=== PATIENT | male | born 1940 | race Caucasian/White ===

== ENCOUNTER 2017-03-22 07:44 | Day surgery (SDC) | payer OTHER, BC ==
[2017-03-22] MEDS ORDERED: PROPOFOL 200 MG/20 ML VIAL IVP ONE (07:47)
[2017-03-22] MEDS ORDERED: fentaNYL 100 MCG/2 ML INJ IVP ONE ×2 (07:47→08:11)
[2017-03-22] MEDS ORDERED: NS 500 ML IV ONE (07:47)
[2017-03-22] MEDS ORDERED: MIDAZOLAM 2 MG/2 ML VIAL IVP ONE ×2 (07:47→08:11)
[2017-03-22] MEDS ORDERED: BENZOCAINE UNIT DOSE SPRAY HURRICAINE MM ONE (08:11)
--- NOTE | 2017-03-22 08:11 | CPEKG ---
Heart Rate: 87 RR Interval: 690 P-R Interval: 191 QRSD Interval: 90 QT Interval: 388 QTC Interval: 467 P [place]: 106 QRS [place]: -60 T Wave [place]: 53 EKG Severity - ABNORMAL ECG - EKG Impression: ATRIAL FLUTTER VS ATRIAL TACHYCARDIA EKG Impression: LEFT ANTERIOR FASCICULAR BLOCK EKG Impression: BORDERLINE R WAVE PROGRESSION, ANTERIOR LEADS Electronically Signed By: Mayte Beckman 22-Mar-2017 10:47:28
[2017-03-22] MEDS ORDERED: ATROPINE SULFATE 1 MG/10 ML SYR ONE (08:14)
[2017-03-22 08:46] LABS: INR 1.7 (0.83-1.16)
[2017-03-22 08:47] LABS: APTT 36.6 SEC (23.0-38.0)
[2017-03-22 08:48] LABS: ANION GAP 9 mEq/L (8-16); CALCIUM 9.2 mg/dL (8.5-10.4); CARBON DIOXIDE 26 mEq/l (22-31); CHLORIDE 109 mEq/L (97-110); CREATININE 0.8 mg/dL (0.7-1.3); GLOMERULAR FILTRATION RATE > 60; GLUCOSE 103 mg/dL (70-100); MAGNESIUM 2.1 mg/dL (1.6-2.3); POTASSIUM 4.4 mEq/L (3.5-5.2); SODIUM 144 mEq/L (134-144)
[2017-03-22] MEDS ORDERED: LIDOCAINE 2% 5 ML SDV ONE (09:07)
[2017-03-22] MEDS ORDERED: PROPOFOL 200 MG/20 ML VIAL ONE (09:07)
[2017-03-22] MEDS ORDERED: PHENYLEPHRINE 10 MG/ML SDV ONE (10:03)
--- NOTE | 2017-03-22 10:14 | CPEKG ---
Heart Rate: 49 RR Interval: 1224 P-R Interval: 168 QRSD Interval: 92 QT Interval: 488 QTC Interval: 441 P [place]: 11 QRS [place]: -47 T Wave [place]: 51 EKG Severity - ABNORMAL ECG - EKG Impression: SINUS BRADYCARDIA EKG Impression: NONSPECIFIC ANTERIOR AND INFERIOR T ABNL EKG Impression: LAD, CONSIDER LEFT ANTERIOR FASCICULAR BLOCK EKG Impression: COMPARED WITH PRIOR, NSR NOW PRESENT Electronically Signed By: Mayte Beckman 22-Mar-2017 10:46:34
--- NOTE | 2017-03-22 12:08 | CPR ---
[f rep st] NONINVASIVE CARDIAC PROCEDURE REPORT DATE OF PROCEDURE: 03/22/2017 PROCEDURE PERFORMED: Transesophageal echocardiogram guided cardioversion. INDICATION FOR PROCEDURE: Persistent atrial tachycardia. The patient is a pleasant 76-year-old gentleman who has developed a new onset of an atrial tachycard ia that has persisted for several weeks. He was started on Eliquis 5 mg p.o. b.i.d., approximately 2 weeks ago, for concern of possible paroxysmal atrial fibrillation given the irregular nature of hi s rhythm. This rhythm has persisted despite medical management, prompting YASIR guided cardioversion. The patient has informed me he has been compliant with his Eliquis. Risks and benefits of both YASIR and cardioversion were explained in detail to the patient by myself, as well as Anesthesia. He had signed consents for both YASIR and cardioversion. After consents were signed, a bite block was then placed, oxygen was placed, and sedation was achiev ed with propofol. Once appropriate level of sedation was achieved, YASIR probe was passed without inc ident. YASIR probe was used to take images of all cardiac structures. He does have a prolapsed brian l valve, primarily with P2 segment, as well as an A2 segment, with severe, anteriorly directed brian l regurgitation with Coanda effect. Please see complete YASIR report for details. There is no eviden ce of left atrial appendage thrombus. After completion of echocardiogram, YASIR probe was removed. The patient remained appropriately sedated for cardioversion. He underwent cardioversion with a sin gle shock of 150 joules of synchronized biphasic energy with return to sinus rhythm, primarily in th e upper 40s to mid 50s. Postprocedure, he was hypotensive with systolic blood pressure in the 60s. He received a total of 200 mcg of phenylephrine. He woke from the procedure without complications. PLAN: 1. Continue current medications. 2. Expressed to the patient the importance of remaining on anticoagulation with Eliquis 5 mg p.o. b .i.d. 3. Would recommend consultation with Electrophysiology for consideration of atrial tachycardia abla tion. 4. Will also continue to follow his mitral valve prolapse and severe mitral regurgitation. PLAN: Patient is scheduled for followup in our office on March 30, 2017. /[id number]/MODL
--- NOTE | 2017-03-26 10:57 | ECHO ---
[id number] + + [address] : : [facility] [address] : : [phone] + Transesophageal Echocardiographic Report + -------+ :Name: DEVIN ALICIA JStudy Date: 03/22/2017 08:54 AM : : Hospital Admission Number: [id number] Locati on: [facility]: :: 1940 Gender: Male : :Age: 76 yrs Race: WH : :Reason For Study: Atrial Fibrillation : + -------+ Doppler Measurements \T\ Calculations TR max lon: 207.3 cm/sec TR max P.2 mmHg RAP systole: 10.0 mmHg RVSP(TR): 27.2 mmHg Left Ventricle Left ventricular systolic function is normal. Ejection Fraction = 60-65%%. Right Ventricle The right ventricular systolic function is normal. Atria The interatrial septum is intact with no evidence for an atrial septal defect. No thrombus is detected in the left atrial appendage. The left atrium is moderately dilated. Mitral Valve Prolapse of the posterior mitral leaflet(s). Moderate to severe eccentric jet of mitral regurgitation. Tricuspid Valve The tricuspid valve is normal in structure and function. There is moderate tricuspid regurgitation. Right ventricular systolic pressure is normal. Aortic Valve The aortic valve is trileaflet. The aortic valve is normal in structure and function. Mild aortic regurgitation. Pulmonic Valve The pulmonic valve is normal in structure and function. Mild pulmonic valvular regurgitation. Vessels Mild atherosclerotic plaque(s) in the descending aorta. Conclusion A 2D transesophageal echocardiogram with color flow Doppler was performed. No thrombus is detected in the left atrial appendage. Prolapse of the posterior mitral leaflet(s). Moderate to severe eccentric jet of mitral regurgitation. There is moderate tricuspid regurgitation. Right ventricular systolic pressure is normal. Mild aortic regurgitation. Mild pulmonic valvular regurgitation. Mild atherosclerotic plaque(s) in the descending aorta. The left atrium is moderately dilated. The aortic valve is normal in structure and function. Left ventricular systolic function is normal. Ejection Fraction = 60-65%%. Final Reading Physician: Efren Solomon electronically signed on 03/26/2017 10:55 AM Ordering Physician: Efren Solomon Performed By: Efren Solomon
== END 2017-03-22 12:00 | disposition home or self-care (01) ==
LOC: FCATH 07:44
PROVIDERS: ATTEND Internal Medicine Cardiovascular Disease
PROC: B246ZZ4 Ultrasonography of Right and Left Heart, Transesophageal (ICD-10-PCS; principal; 2017-03-22)
PROC: 5A2204Z Restoration of Cardiac Rhythm, Single (ICD-10-PCS; principal; 2017-03-22)
DX: I47.1 Supraventricular tachycardia (principal); Z79.01 Long term (current) use of anticoagulants; I34.0 Nonrheumatic mitral (valve) insufficiency; I34.1 Nonrheumatic mitral (valve) prolapse; Z98.890 Other specified postprocedural states; I25.10 Atherosclerotic heart disease of native coronary artery without angina pectoris; Z95.1 Presence of aortocoronary bypass graft
CPT/HCPCS: J0461; J2370; J2704

== ENCOUNTER 2017-08-09 11:32 | Inpatient (IN) | payer OTHER, BC ==
[2017-08-09] MEDS ORDERED: diphenhydrAMINE 25 MG CAP PO ONE (11:38)
[2017-08-09] MEDS ORDERED: DIAZEPAM 5 MG TAB PO ONE (11:38)
[2017-08-09] MEDS ORDERED: FAMOTIDINE 20 MG TAB PO ONE (11:38)
[2017-08-09] MEDS ORDERED: NS 1,000 ML IV ONE (11:38)
[2017-08-09] MEDS ORDERED: ASPIRIN EC 325 MG TAB PO ONE (11:38)
--- NOTE | 2017-08-09 11:59 | CPEKG ---
Heart Rate: 86 RR Interval: 698 QRSD Interval: 88 QT Interval: 392 QTC Interval: 469 QRS [place]ound: -51 T Wave [place]: 83 EKG Severity - ABNORMAL ECG - EKG Impression: ATRIAL FLUTTER, A-RATE 230 EKG Impression: LEFT ANTERIOR FASCICULAR BLOCK EKG Impression: BORDERLINE R WAVE PROGRESSION, ANTERIOR LEADS EKG Impression: MINIMAL ST DEPRESSION, LATERAL LEADS EKG Impression: ATRIAL FLUTTER HAS REPLACED NORMAL SINUS RHYTHM ON PRIOR Electronically Signed By: Jose Juares 13-Aug-2017 08:42:58
[2017-08-09 12:14] LABS: % IMMATURE GRANULYOCYTES 0.2 % (0.0-1.1); ABSOLUTE IMMATURE GRANULOCYTES 0.01 10^3/uL (0.00-0.10); ADD DIFF? NO; ADD MORPH? NO; ADD SCAN? NO; ATYPICAL LYMPHOCYTE FLAG 10 (0-99); FRAGMENT RBC FLAG 0 (0-99); HEMATOCRIT 40.6 % (40.0-51.0); HEMOGLOBIN 14.2 g/dL (13.7-17.5); LEFT SHIFT FLG 0 (0-99); LIPEMIA HEMOLYSIS FLAG 90 (0-99); MEAN CELL HEMOGLOBIN 34.7 pg (27.9-34.1); MEAN CELL VOLUME 99.3 fL (81.5-99.8); MEAN PLATELET VOLUME 10.1 fL (8.7-11.7); PLATELET CLUMPS FLAG 0 (0-99); PLATELET COUNT 150 10^3/uL (150-400); RED BLOOD CELL COUNT 4.09 10^6/uL (4.40-6.38); RED CELL DISTRIBUTION WIDTH 12.7 % (11.5-15.2)
[2017-08-09] MEDS ORDERED: fentaNYL 100 MCG/2 ML INJ ONE (12:35)
[2017-08-09] MEDS ORDERED: MIDAZOLAM 2 MG/2 ML VIAL ONE (12:35)
[2017-08-09] MEDS ORDERED: IOPAMIDOL (ISOVUE-370) 150 ML BTL IV ONE (12:35)
[2017-08-09] MEDS ORDERED: LIDOCAINE 1% 300 MG/30 ML SDV ONE (12:35)
[2017-08-09 12:38] LABS: ANION GAP 11 mEq/L (8-16); CALCIUM 9.9 mg/dL (8.5-10.4); CARBON DIOXIDE 23 mEq/l (22-31); CHLORIDE 106 mEq/L (97-110); CHOLESTEROL 143 mg/dL (140-220); CHOLESTEROL/HDL RATIO 3.33 RATIO (1.00-4.97); CREATININE 0.8 mg/dL (0.7-1.3); GLOMERULAR FILTRATION RATE > 60; GLUCOSE 100 mg/dL (70-100); HIGH DENSITY LIPOPROTEIN 43 mg/dL (40-65); LDL/HDL RATIO 1.95 RATIO (1.00-3.64); LOW DENSITY LIPOPROTEIN 84 mg/dL (80-100); MAGNESIUM 1.9 mg/dL (1.6-2.3); NON-HIGH DENSITY LIPOPROTEIN 100 mg/dL (90-129); POTASSIUM 4.5 mEq/L (3.5-5.2); SODIUM 140 mEq/L (134-144); TRIGLYCERIDE 82 mg/dL (40-150); VERY LOW DENSITY LIPOPROTEINS 16 mg/dL (8-25)
--- NOTE | 2017-08-09 13:24 | PDPROPOC ---
Sedation Plan of Care Sedation Plan of Care: vital signs stable, mental status noted, patient educated of risks, benefits, alternatives, patient can tolerate sedation ASA Classification: ASA 2 Planned drugs: fentanyl, midazolam Mallampati Score: Class 2 Mallampati Reference Image: Patient passed 3-3-2 rule?: Yes
--- NOTE | 2017-08-09 13:27 | PDGENHP ---
History & Physical Chief Complaint: BORRERO, ankle edema. Severe MR History of Present Illness: 76 year old with moderate to severe symptomatic MR admitted for Left and Right heart cath prior to MV repair tomorrow with Dr Teixeira. Pertinent Past, Social, Family History: PMH: MR, PAF, CAD, DM, Relevant Physical Exam: Awake, Alert, appropriate. Rate controlled afib Cardiorespiratory Assessment: Rate controlled afib. CTAB
[2017-08-09 13:29] LABS: INR 1.24 (0.83-1.16); PROTIME(PATIENT) 15.6 SEC (12.0-15.0)
[2017-08-09] MEDS ORDERED: MUPIROCIN 2% 22 GM OINT NS ONE (14:25)
[2017-08-09] MEDS ORDERED: NITROGLYCERIN 0.4 MG BTL SL PRN (15:16)
[2017-08-09] MEDS ORDERED: ONDANSETRON 4 MG/2 ML VIAL IVP PRN (15:16)
[2017-08-09] MEDS ORDERED: ATROPINE SULFATE 1 MG/10 ML SYR IVP PRN (15:16)
--- NOTE | 2017-08-09 16:18 | CPIP ---
[f rep st] INVASIVE CARDIAC PROCEDURE DATE OF PROCEDURE: 08/09/2017 NAME OF PROCEDURE: Diagnostic left heart catheterization and right heart catheterization. INDICATION FOR PROCEDURE: Preoperative left and right heart catheterization in anticipation of mitral valve repair, aortic valve replacement and tricuspid ring , and Bill-Maze IV procedure in the setting of symptomatic severe mitral insufficiency. PROCEDURE: After informed consent was obtained, patient was brought to the cardiac catheterization lab where he was prepped and draped in a sterile fashion. Using 1% lidocaine, the right groin was anesthetized. Using modified Seldinger technique, a 6-Ukrainian catheter was placed into the right common femoral artery without complications. Local anesthesia was then delivered to the right common femoral vein site. A 7-Ukrainian catheter was placed into the right common femoral vein via modified Seldinger technique without complications. Right heart catheterization was performed, measuring right atrial pressure, right ventricular pressure, pulmonary artery pressure, and pulmonary capillary wedge pressure. Outputs were taken. O2 saturations were obtained at the pulmonary artery, right ventricle, right atrium, and inferior vena cava. Balloon was deflated, and right heart catheter was removed without complications. A JL-4 catheter was used to take images of the left coronary anatomy in multiple projections. The JL-4 catheter was exchanged over a guidewire for a JR -4 catheter. JR-4 catheter was used to take images of the right coronary artery in multiple projections. The JR-4 catheter was exchanged over a guidewire for angled pigtail catheter. Angled pigtail catheter was used to cross the aortic valve. LVEDP was assessed. Left ventriculogram was performed. Aortic valve gradient was assessed. Angled pigtail catheter was removed over a guidewire without complications. Imaging of the right common femoral artery site demonstrated appropriate placement of the 6-Ukrainian sheath with no evidence of trauma to the right common femoral artery and was deemed appropriate for closure. FINDINGS: 1. Left main: Normal size and caliber, bifurcates into left anterior descending and left circumflex coronary arteries. There is no evidence of coronary disease within the left main. 2. Left anterior descending: A large vessel that wraps around the apex of the left ventricle. There is a small first and moderate-sized second diagonal branches. There are multiple septal perforators. There is no evidence of coronary disease within the left anterior descending. 3. Circumflex artery: Gives rise to a small first and moderate 2nd obtuse marginal branches. There are some mild luminal irregularities in the proximal portion of the smaller 1st obtuse marginal branch. The remainder of the circumflex artery is free of coronary disease. 4. The right coronary artery is a nondominant vessel. No evidence of coronary disease within the right coronary artery. 5. Hemodynamics: Left ventriculogram demonstrates LVEF of 60%. LVEDP 16 mmHg. Aortic valve gradient, none. RIGHT HEART CATHETERIZATION: Hemodynamics: 1. Right atrial pressure mean of 10 mmHg. 2. Right ventricular pressure 27/5. 3. Pulmonary artery pressure 25/17 with a mean of 20. 4. Pulmonary capillary wedge pressure 14 mmHg. Saturations: 1. Femoral artery saturation 93.3%. 2. Pulmonary artery pressure 68.9%. 3. RV saturation 70.1%. 4. Right atrial saturation 71.9. 5. IVC 77.5%. 6. Aortic pressure 81/64. Hemodynamics: 1. Cardiac output 7.28 L/min. 2. Cardiac index 3.87 at a heart rate of 71 beats per minute. 3. Pulmonary vascular resistance 1.52 Wood units. 4. SVR 6.74 Wood units. CONCLUSION: 1. Essentially normal coronary arteries with mild nonobstructive coronary disease in proximal portion of the first obtuse marginal branch. The remainder of the coronaries were free of coronary artery disease. 2. Left ventricular ejection fraction 60% with evidence of severe mitral regurgitation, 4+. 3. Normal right heart hemodynamics, output, and cardiac index. PLAN: Mitral valve repair and Bill-Maze IV procedure with possible tricuspid ring and aortic valve replacement. /[id number]/MODL MTDD
[2017-08-09 20:50] LABS: HEMOGLOBIN A1C 5.9 % (4.0-6.0)
[2017-08-09] MEDS ORDERED: CHLORHEXIDINE GLUC HIBICLENS 118 ML BTL TP SCH (21:00)
[2017-08-09] MEDS: METOPROLOL TARTRATE 25 MG TAB PO SCH (21:12)
[2017-08-09] MEDS: MUPIROCIN 2% 22 GM OINT NS SCH (22:45)
[2017-08-10] MEDS ORDERED: PHENYLEPHRINE HCL 50 MG in NS 250 ML IV ONE (06:00)
[2017-08-10] MEDS ORDERED: SODIUM BICARBONATE 20 MEQ, LIDOCAINE 1% 10 ML in NORMOSOL-R 1,000 ML MISC ONE (06:00)
[2017-08-10] MEDS ORDERED: ceFAZolin 2 GM/DEXTROSE 100 ML IV ONE (06:00)
[2017-08-10] MEDS ORDERED: MANNITOL 20% 50 GM/250 ML BAG IV ONE (06:00)
[2017-08-10] MEDS ORDERED: AMINOCAPROIC ACID 5 GM/20 ML VIAL IV ONE (06:00)
[2017-08-10] MEDS ORDERED: CITRATE DEXTROSE SOLN 500 ML BAG MISC ONE (06:00)
[2017-08-10] MEDS ORDERED: NOREPINEPHRINE BITARTRATE 16 MG in NS 250 ML IV ONE (06:00)
[2017-08-10] MEDS ORDERED: niCARdipine/NACL 200 ML IV SCH (06:00)
[2017-08-10] MEDS ORDERED: INSULIN REGULAR HUMAN 100 UNIT in NS 100 ML IV ONE (06:00)
[2017-08-10] MEDS ORDERED: ALBUMIN 5% 250 ML BOTTLE IV ONE (06:13)
[2017-08-10] MEDS ORDERED: PROTAMINE SULFATE 50 MG/5 ML VIAL IVP ONE (06:13)
[2017-08-10] MEDS ORDERED: POTASSIUM Cl (KCl) 20 MEQ/50 ML BAG IV ONE (06:14)
[2017-08-10] MEDS ORDERED: CITRATE DEXTROSE SOLN 500 ML BAG ONE (06:14)
[2017-08-10] MEDS ORDERED: NA BICARBONATE 50 MEQ/50 ML VIAL ONE (06:14)
[2017-08-10] MEDS ORDERED: niCARdipine/NACL/200 ML BAG IV ONE (06:14)
[2017-08-10] MEDS ORDERED: CALCIUM CHLORIDE 1 GM/10 ML INJ ONE (06:14)
[2017-08-10] MEDS ORDERED: LIDOCAINE 2% 100 MG/5 ML SYR ONE (06:14)
[2017-08-10] MEDS ORDERED: MILRINONE/DEXTROSE/100 ML BAG IV ONE (06:14)
[2017-08-10] MEDS ORDERED: AMINOCAPROIC ACID 5 GM/20 ML VIAL ONE (06:14)
[2017-08-10] MEDS ORDERED: AMIODARONE HCL 150 MG/3 ML VIAL ONE (06:14)
[2017-08-10] MEDS ORDERED: DOPamine/DEXTROSE/250 ML BAG IV ONE (06:14)
[2017-08-10] MEDS ORDERED: MAGNESIUM SULFATE 1 GM/2 ML VIAL ONE (06:15)
[2017-08-10] MEDS ORDERED: ceFAZolin 1 GM VIAL ONE (06:15)
[2017-08-10] MEDS ORDERED: methylPREDNISolone SOD SUCC 1 GM/8 ML VIAL ONE (06:15)
[2017-08-10] MEDS ORDERED: HEPARIN 10,000 UNIT/10 ML MDV ONE (06:15)
[2017-08-10] MEDS ORDERED: ADENOSINE 6 MG/2 ML VIAL ONE (06:15)
[2017-08-10] MEDS ORDERED: MIDAZOLAM 2 MG/2 ML VIAL ONE (06:53)
--- NOTE | 2017-08-10 06:57 | PDANEPAE ---
ANE History of Present Illness 76 yo for mvr nl lv PAF s/p ascending aorta repair ANE Past Medical History - Pulmonary History Hx Oxygen in Use at Home: No Hx Sleep Apnea: No Sleep Apnea Screening Result - Last Documented: Positive - Endocrine History Hx Diabetes: No - Chronic Pain History Chronic Pain: Yes (neck) ANE Review of Systems Review of Systems: ANE Patient History - Allergies Allergies/Adverse Reactions: erythromycin base [Erythromycin Base] Allergy (Verified 08/02/17 09:56) Swelling/neck,face,throat latex Allergy (Verified 08/02/17 09:56) Rash - Home Medications Home medications: home medication list seen and reviewed Home Medications: Lisinopril [Zestril 5 mg (*)] 5 mg PO DAILY 01/05/11 [Last Taken 03/22/17 07:00] Apixaban [Eliquis] 5 mg PO BID 03/22/17 [Last Taken 03/22/17 07:00] Metoprolol Tartrate [Lopressor 25 mg (*)] 25 mg PO BID 03/22/17 [Last Taken 07:00] Aspirin [Aspirin 81mg (*)] 81 mg PO DAILY 08/02/17 [Last Taken Unknown] Atorvastatin Calcium [Lipitor 40 mg (*)] 40 mg PO DAILY 08/02/17 [Last Taken Unknown] Cholecalciferol Vit D3 [Vitamin D3 (*)] 1,000 units PO DAILY 08/02/17 [Last Taken Unknown] Herbals/Supplements -Info Only 1 ea PO DAILY 08/02/17 [Last Taken Unknown] diphenhydrAMINE [Benadryl 50 MG (*)] 50 mg PO BID PRN 08/02/17 [Last Taken Unknown] - NPO status NPO Status: no food or drink >8 hours NPO Since - Liquids (Date): 08/10/17 NPO Since - Liquids (Time): 00:00 NPO Since - Solids (Date): 08/10/17 NPO Since - Solids (Time): 00:00 - Smoking Hx Smoking Status: Never smoked ANE Labs/Vital Signs - Labs Result Diagrams: 08/09/17 12:01 08/09/17 12:01 - Vital Signs Blood Pressure: 96/63 Heart Rate: 86 Respiratory Rate: 13 O2 Sat (%): 94 Height: 5 ft 10 in Weight: 68.4 kg ANE Physical Exam - Airway Mallampati Score: Class 2 Mouth exam: normal dental/mouth exam - Pulmonary Pulmonary: no respiratory distress - Cardiovascular Cardiovascular: regular rate and rhythym - ASA Status ASA Status: IV ANE Anesthesia Plan Anesthesia Plan: general endotracheal anesthesia Lines/Monitors: arterial line, central line, YASIR
[2017-08-10] MEDS ORDERED: MIDAZOLAM 2 MG/2 ML VIAL IVP ONE ×2 (06:59→07:00)
--- NOTE | 2017-08-10 07:02 | PDGENHP ---
History and Physical - Chief Complaint atrial fib/flutter and leaky valves - History of Present Illness 76 yo male with a hx of remote asc aneurysm repair and recent increase in frequency of palpitations with worsening exertional dyspnea and declining stamina, found to be in atrial fibrillation and to have severe MR, moderate AI, and moderate TR. No overt CHF, CP or presyncope. Evaluated for valvular replacement with AF ablation and admitted in advance of scheduled surgery to complete risk stratification. Preop imaging negative for obstructive CAD, LVSD, elevated filling pressures or prohibitive neurologic risk. History Information - Allergies/Home Medication List Allergies/Adverse Reactions: erythromycin base [Erythromycin Base] Allergy (Verified 08/02/17 09:56) Swelling/neck,face,throat latex Allergy (Verified 08/02/17 09:56) Rash Home Medications: Lisinopril [Zestril 5 mg (*)] 5 mg PO DAILY 01/05/11 [Last Taken 03/22/17 07:00] Apixaban [Eliquis] 5 mg PO BID 03/22/17 [Last Taken 03/22/17 07:00] Metoprolol Tartrate [Lopressor 25 mg (*)] 25 mg PO BID 03/22/17 [Last Taken 07:00] Aspirin [Aspirin 81mg (*)] 81 mg PO DAILY 08/02/17 [Last Taken Unknown] Atorvastatin Calcium [Lipitor 40 mg (*)] 40 mg PO DAILY 08/02/17 [Last Taken Unknown] Cholecalciferol Vit D3 [Vitamin D3 (*)] 1,000 units PO DAILY 08/02/17 [Last Taken Unknown] Herbals/Supplements -Info Only 1 ea PO DAILY 08/02/17 [Last Taken Unknown] diphenhydrAMINE [Benadryl 50 MG (*)] 50 mg PO BID PRN 08/02/17 [Last Taken Unknown] I have personally reviewed and updated: family history, medical history, social history, surgical history - Past Medical History atrial fibrillation (onset in Jun 2017), coronary artery disease (stable), cancer (skin), diabetes type 2 (diet controlled), hypertension, hyperlipidemia Additional medical history: mitral valve prolapse. enlarged aortic root with mild AI. long standing persistent atrial flutter. chronic anticoagulation with Eliquis (stopped 08/03/17). varicose veins with mild chronic ankle edema. pectus excavatum - Surgical History Reports: vascular surgery (Ascending aortic replacement 2008) Additional surgical history: hernia repair 1998. Moh's surgery nose - Family History Positive for: connective tissue disorder (Marfan's syndrome) - Social History Smoking Status: Never smoked Review of Systems Review of Systems: Constitutional: Reports: no symptoms EENMT: Reports: other (glasses) Cardiac: Reports: irregular heart rate, other (no inc in edema) Respiratory: Reports: other (no PND, orthopnea, or SOB at rest) Gastrointestinal: Reports: no symptoms Genitourinary: Reports: no symptoms Muscolosketal: Reports: no symptoms Skin: Reports: no symptoms Neurological: Reports: no symptoms Hematologic/Lymphatic: Reports: no symptoms Physical Exam Physical Exam: Temp Pulse Resp BP Pulse Ox 36.6 C 86 13 96/63 L 94 08/10/17 04:37 08/10/17 04:37 08/10/17 04:37 08/10/17 04:37 08/10/17 04:37 Constitutional: no apparent distress, appears nourished Eyes: anicteric sclera, other (PER) Ears, Nose, Mouth, Throat: moist mucous membranes, hearing normal, other (good dentition) Cardiovascular: regular rate and rhythym, systolic murmur, other (no visible edema, scattered superficial varicosities bilat low legs) Peripheral Pulses: 2+: femoral (R) (cath site ok), femoral (L), dorsalis-pedis ( R), dorsalis-pedis (L) Respiratory: clear to auscultation, other (well healed median sternotomy scar) Gastrointestinal: normoactive bowel sounds, soft, non-tender abdomen Skin: warm, no rashes or abrasions Musculoskeletal: other (symmetric tone) Psychiatric: interacting appropriately, not anxious Lab Data & Imaging Review 08/09/17 12:01 08/09/17 12:01 WBC 5.40 10^3/uL (3.80-9.50) 08/09/17 12:01 RBC 4.09 10^6/uL (4.40-6.38) L 08/09/17 12:01 Hgb 14.2 g/dL (13.7-17.5) 08/09/17 12:01 Hct 40.6 % (40.0-51.0) 08/09/17 12:01 MCV 99.3 fL (81.5-99.8) 08/09/17 12:01 MCH 34.7 pg (27.9-34.1) H 08/09/17 12:01 MCHC 35.0 g/dL (32.4-36.7) 08/09/17 12:01 RDW 12.7 % (11.5-15.2) 08/09/17 12:01 Plt Count 150 10^3/uL (150-400) 08/09/17 12:01 MPV 10.1 fL (8.7-11.7) 08/09/17 12:01 Neut % (Auto) 61.1 % (39.3-74.2) 08/09/17 12:01 Lymph % (Auto) 24.3 % (15.0-45.0) 08/09/17 12:01 [place] % (Auto) 8.9 % (4.5-13.0) 08/09/17 12:01 Eos % (Auto) 4.4 % (0.6-7.6) 08/09/17 12:01 Baso % (Auto) 1.1 % (0.3-1.7) 08/09/17 12:01 Nucleat RBC Rel Count 0.0 % (0.0-0.2) 08/09/17 12:01 Absolute Neuts (auto) 3.30 10^3/uL (1.70-6.50) 08/09/17 12:01 Absolute Lymphs (auto) 1.31 10^3/uL (1.00-3.00) 08/09/17 12:01 Absolute Monos (auto) 0.48 10^3/uL (0.30-0.80) 08/09/17 12:01 Absolute Eos (auto) 0.24 10^3/uL (0.03-0.40) 08/09/17 12:01 Absolute Basos (auto) 0.06 10^3/uL (0.02-0.10) 08/09/17 12:01 Absolute Nucleated RBC 0.00 10^3/uL (0-0.01) 08/09/17 12:01 Immature Gran % 0.2 % (0.0-1.1) 08/09/17 12:01 Immature Gran # 0.01 10^3/uL (0.00-0.10) 08/09/17 12:01 PT 15.6 SEC (12.0-15.0) H 08/09/17 12:01 INR 1.24 (0.83-1.16) H 08/09/17 12:01 Sodium 140 mEq/L (134-144) 08/09/17 12:01 Potassium 4.5 mEq/L (3.5-5.2) 08/09/17 12:01 Chloride 106 mEq/L (97-110) 08/09/17 12:01 Carbon Dioxide 23 mEq/l (22-31) 08/09/17 12:01 Anion Gap 11 mEq/L (8-16) 08/09/17 12:01 BUN 18 mg/dL (7-23) 08/09/17 12:01 Creatinine 0.8 mg/dL (0.7-1.3) 08/09/17 12:01 Estimated GFR > 60 08/09/17 12:01 Glucose 100 mg/dL (70-100) 08/09/17 12:01 Hemoglobin A1c 5.9 % (4.0-6.0) 08/09/17 17:30 Estim Average Glucose 123 mg/dL (68-126) 08/09/17 17:30 Calcium 9.9 mg/dL (8.5-10.4) 08/09/17 12:01 Magnesium 1.9 mg/dL (1.6-2.3) 08/09/17 12:01 Triglycerides 82 mg/dL (40-150) 08/09/17 12:01 Cholesterol 143 mg/dL (140-220) 08/09/17 12:01 Cholesterol Risk Factr 0.5 (0.2-1.0) 08/09/17 12:01 LDL Cholesterol, Calc 84 mg/dL (80-100) 08/09/17 12:01 LDL Risk Factor 0.8 (0.2-1.0) 08/09/17 12:01 VLDL Cholesterol 16 mg/dL (8-25) 08/09/17 12:01 Non-HDL Cholesterol 100 mg/dL (90-129) 08/09/17 12:01 HDL Cholesterol 43 mg/dL (40-65) 08/09/17 12:01 LDL/HDL Ratio 1.95 RATIO (1.00-3.64) 08/09/17 12:01 Cholesterol/HDL Ratio 3.33 RATIO (1.00-4.97) 08/09/17 12:01 Patient ABO/Rh A POSITIVE 08/09/17 17:30 Antibody Screen NEGATIVE 08/09/17 17:30 Crossmatch IS Only See Detail 08/09/17 17: Visualized and Interpreted Chest x-ray results: Yes Chest X-Ray results: no infiltrate, other (cardiomegaly, pectus excavatum) Visualized and Interpreted EKG results: Yes EKG Interpretation: Positive for: other (atrial flutter) Assessment & Plan Assessment: Sx severe mitral regurgitation Secondary tricuspid regurgitation Moderate aortic valve insufficiency Longstanding persistent AFlutter with more recent AF Nonobstructive CAD with preserved LV systolic fx Pectus excavatum Remote median sternotomy for ascending aortic replacement Plan: Redo median sternotomy. Possible peripheral CPB pending RV adhesion to post sternum. Multi valve replace/repair CoxMaze4 procedure Consents per Dr Teixeira
[2017-08-10] MEDS ORDERED: fentaNYL 100 MCG/2 ML INJ ONE ×2 (07:06)
[2017-08-10] MEDS ORDERED: REMIFENTANIL HCL 1 MG VIAL ONE (07:06)
[2017-08-10] MEDS ORDERED: PROPOFOL/EMULSION 500 MG/50 ML BOTTLE IV ONE ×2 (07:06→10:04)
[2017-08-10] MEDS ORDERED: ROCURONIUM 100 MG/10 ML VIAL ONE (08:00)
[2017-08-10] MEDS ORDERED: DEXMEDETOMIDINE HCL 400 MCG in NS 100 ML IV SCH (08:00)
[2017-08-10] MEDS: METOPROLOL TARTRATE 25 MG TAB PO SCH (08:44)
[2017-08-10] MEDS: MUPIROCIN 2% 22 GM OINT NS SCH ×2 (08:45→21:05)
[2017-08-10] MEDS ORDERED: MINERAL OIL 10 ML VIAL ONE (11:21)
--- NOTE | 2017-08-10 11:44 | POSTOPPROG ---
Post Op Note Date of Operation: 08/10/17 Surgeon: Pepe Teixeira Grocery Clerk Marking: Bernardino Anesthesiologist: Tian Anesthesia: GET(General Endotracheal) Pre-op Diagnosis: CHF, MR,TR,AI LPAF Procedure: reop MV repair #34 ring/P2 resection, TVA #32 ring, CMIV w testing Inf/Abcess present in the surg proc area at time of surgery?: No EBL: 100-500
[2017-08-10] MEDS ORDERED: SODIUM CL NASAL 45 ML BTL EACHNARE PRN (11:53)
[2017-08-10] MEDS ORDERED: D50W 25 GM/50 ML SYR IVP PRN (11:53)
[2017-08-10] MEDS ORDERED: MEPERIDINE 25 MG/ML SYR IVP PRN (11:53)
[2017-08-10] MEDS ORDERED: POLYETHYLENE GLYCOL 3350 17 GM PKT PO PRN (11:53)
[2017-08-10] MEDS ORDERED: MAGNESIUM SULF 2 GM/WATER 50 ML IV ONE (11:53)
[2017-08-10] MEDS ORDERED: MAGNESIUM HYDROXIDE 30 ML UDCUP PO PRN (11:53)
[2017-08-10] MEDS ORDERED: ACETAMINOPHEN 650 MG SUPP PR PRN (11:53)
[2017-08-10] MEDS ORDERED: LACTULOSE 20 GM/30 ML UDCUP PO PRN (11:53)
[2017-08-10] MEDS ORDERED: CEPACOL LOZENGE PO PRN (11:53)
[2017-08-10] MEDS ORDERED: fentaNYL 100 MCG/2 ML INJ IVP PRN (11:53)
[2017-08-10] MEDS ORDERED: ONDANSETRON DISINTEGRATING 4 MG TAB PO PRN (11:53)
[2017-08-10] MEDS ORDERED: BISACODYL 10 MG SUPP PR PRN (11:53)
[2017-08-10] MEDS ORDERED: POTASSIUM Cl (KCl) 50 ML IV PRN (11:53)
[2017-08-10] MEDS ORDERED: PANTOPRAZOLE SODIUM 40 MG in NS 100 ML IV ONE (11:53)
[2017-08-10] MEDS ORDERED: ACETAMINOPHEN 325 MG TAB PO PRN (11:53)
[2017-08-10] MEDS ORDERED: INSULIN REGULAR HUMAN 100 UNIT in NS 100 ML IV SCH (12:00)
[2017-08-10] MEDS ORDERED: NS 1,000 ML IV SCH (12:00)
[2017-08-10] MEDS: ALBUMIN 5% 250 ML IV PRN ×2 (12:38→12:50)
--- NOTE | 2017-08-10 12:42 | GOP ---
[f rep st] OPERATIVE REPORT DATE OF OPERATION: 08/10/2017 SURGEON: Pepe Teixeira DO [employer] ARCHITECT: Bernardino ANESTHESIOLOGIST: Oz Crook MD. PREOPERATIVE DIAGNOSIS: 1. Congestive heart failure. 2. Longstanding persistent atrial fibrillation. 3. Moderate aortic insufficiency. 4. Vmojhacl-gf-xpoeee tricuspid insufficiency. 5. Severe mitral insufficiency. POSTOPERATIVE DIAGNOSIS: 1. Congestive heart failure. 2. Longstanding persistent atrial fibrillation. 3. Moderate aortic insufficiency. 4. Vofynupf-ck-ayxtkq tricuspid insufficiency. 5. Severe mitral insufficiency. PROCEDURE PERFORMED: 1. Reoperation mitral valve repair with a P2 resection and a #34 Physio annuloplasty ring. 2. Tricuspid valve annuloplasty with a #32 Carrillo ring annuloplasty. 3. Left and right-sided Bill-Maze IV, utilizing both radiofrequency and cryoablation with internal cl osure of the left atrial appendage with testing. FINDINGS: Patient presented with longstanding persistent atrial fibrillation, severe mitral insuffic iency, rfziwzfw-kn-wmkbjs tricuspid insufficiency, and moderate aortic insufficiency. DESCRIPTION OF PROCEDURE: He was consented, brought to the operating room, intubated, and monitoring lines were placed. He was prepped and draped in sterile classical manner. Repeat sternotomy was pe rformed. Left common femoral artery was exposed prior to sternotomy due to the right atrium being ad herent to the posterior sternal table. The sternum was opened, and the right side of the heart was m arsupialized, as was the previous ascending aorta graft that had been placed prior. He was hepariniz ed and cannulated in the ascending aorta above the graft and in both cava with caval tapes. Retrogra de and antegrade catheters were placed. We then initiated cardiopulmonary bypass. He had minimal re gurgitation with the heart empty, suggesting that his aortic insufficiency was not clinically signifi cant. Because of the scar tissue, I was unable to encircle the pulmonary veins with heart beating. I therefore arrested the heart with antegrade cardioplegia, retrograde cardioplegia, topical hypother felicia, and systemic cooling. I then opened the left atrium through the right superior pulmonary vein a raine did a 3/4 circumference transection of the right vein, completing it with cryo for 2 minutes. I dian younger did the roof lesion and the left pulmonary vein lesion with cryo, as well, and the floor lesion w ith cryo as well as the isthmus lesion. I then did the coronary sinus lesion, avoiding the terminus of the right and left coronary systems, overlapping it with the isthmus lesion. I then inspected the valve. 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 A triangular resection of the P2 segment w ith primary closure with [place]-Ricky revealed complete resolution of the regurgitation. He was sized fo r a 34 Physio ring, which was secured in place with Cor-Knots. I then closed the left atrial appenda ge from inside (because of scar tissue on the left and the inability to approach it from the left abdoulaye e) with a 2-layer closure running suture. I then closed the left atrium in a standard fashion. We t hen began rewarming the patient; again antegrade cardioplegia was easily administered without distend ing the ventricle. Therefore, I thought aortic regurgitation was not clinical and had no intention o f replacing the valve. I then opened the right atrium through a vertical atriotomy. I placed circum ferential sutures in the tricuspid anulus, which was dilated. I then released the cross-clamp with s uction on the vent in Trendelenburg and performed the cryo lesion across the right coronary artery in to the tricuspid isthmus for 3 minutes. We then did radiofrequency ablation for the superior and inf erior vena caval lines and a free wall line. I then sized the patient for a 32 Carrillo ring which wa s sutured into the tricuspid position with Cor-Knots. Distention of the right ventricle revealed no regurgitation. We then closed the right atrium with continuous running 4-0 Prolene suture. Spontane ous cardiac activity was noted to resume. Atrial pacing wires were placed. He was AV-paced while in Trendelenburg. He was aspirated through the LV apex and ascending aorta. When no further air was i dentified, he was weaned from bypass with 5 of dopamine. Inspection of the mitral valve revealed no regurgitation and no AMILCAR. Ventricular function slowly improved with observation and time. The hepar in was reversed with protamine. The cannula was removed and oversewn. Aortic root regurgitation rem ained in the bwqg-kf-hhlwdrik range and did not appear to be clinically significant. After hemostasi s was obtained, 2 pleural and 1 mediastinal drains were placed. Thymic fat and pericardium were clos ed as best we could; it had not been closed from the prior operation. The sternum was closed in patsy dard fashion. The patient was returned to ICU in stable condition. /[id number]/MODL
--- NOTE | 2017-08-10 12:50 | POSTANESTH ---
Post Anesthetic Evaluation Cardiovascular Status: Normal, Stable Respiratory Status: Other, See Comment Level of Consciousness/Mental Status: Moderately Sleepy Pain Control: Adequate, Prn Tx Ordered Nausea/Vomiting Control: Adequate, Prn Tx Ordered Complications Possibly Related to Anesthesia: None Noted (In sicu on vent . sedated. no comp geta)
[2017-08-10 12:54] LABS: CALCULATED OXYGEN SATURATION 91 % (92-95); O2 CONCENTRATIION 40 % (0-100)
--- NOTE | 2017-08-10 13:32 | ASMTCMCOM ---
CM Note CM Note Notes: Patient is POD #0 mitral valve repair and mccallum-maze procedure w Dr Teixeira. He is stable in the ICU. Patient lives with and has family nearby. PT/OT and cardiac rehab evals ordered and pending. CM will follow for discharge planning. Date Signed: 08/10/2017 01:31 PM Electronically Signed By:Ying Solo RN
[2017-08-10] MEDS: ceFAZolin 2 GM/DEXTROSE 100 ML IV SCH ×2 (14:15→21:04)
[2017-08-10] MEDS: KETOROLAC 15 MG/1 ML SDV IVP SCH ×2 (14:15→17:13)
[2017-08-10] MEDS: fentaNYL 25 MCG PATCH TD SCH (15:38)
[2017-08-10] MEDS ORDERED: POTASSIUM Cl (KCl) 20 MEQ in NS 50 ML IV PRN (16:35)
[2017-08-10] MEDS ORDERED: FAMOTIDINE 20 MG/NACL 50 ML IV SCH (21:00)
[2017-08-10] MEDS ORDERED: CHLORHEXIDINE GLUCONATE 15 ML UDL PO SCH (21:00)
[2017-08-10] MEDS: METOCLOPRAMIDE 10 MG/2 ML VIAL IVP PRN (21:34)
[2017-08-10] MEDS: ONDANSETRON 4 MG/2 ML VIAL IVP PRN (21:35)
[2017-08-10 22:11] LABS: HEMATOCRIT 33.2 % (40.0-51.0); HEMOGLOBIN 11.3 g/dL (13.7-17.5); MEAN CELL HEMOGLOBIN 34.5 pg (27.9-34.1); MEAN CELL VOLUME 101.2 fL (81.5-99.8); RED BLOOD CELL COUNT 3.28 10^6/uL (4.40-6.38); RED CELL DISTRIBUTION WIDTH 12.8 % (11.5-15.2)
[2017-08-11] MEDS: KETOROLAC 15 MG/1 ML SDV IVP SCH ×4 (01:19→18:40)
[2017-08-11 01:22] LABS: CALCULATED OXYGEN SATURATION 89 % (92-95); O2 CONCENTRATIION 40 % (0-100)
[2017-08-11 04:11] LABS: % IMMATURE GRANULYOCYTES 0.4 % (0.0-1.1); ABSOLUTE IMMATURE GRANULOCYTES 0.05 10^3/uL (0.00-0.10); ADD DIFF? NO; ADD MORPH? NO; ADD SCAN? NO; ATYPICAL LYMPHOCYTE FLAG 0 (0-99); FRAGMENT RBC FLAG 0 (0-99); HEMATOCRIT 31.9 % (40.0-51.0); LEFT SHIFT FLG 10 (0-99); LIPEMIA HEMOLYSIS FLAG 90 (0-99); MEAN CELL HEMOGLOBIN 34.9 pg (27.9-34.1); MEAN CELL HEMOGLOBIN CONCENTR. 34.5 g/dL (32.4-36.7); MEAN CELL VOLUME 101.3 fL (81.5-99.8); MEAN PLATELET VOLUME 10.5 fL (8.7-11.7); PLATELET CLUMPS FLAG 0 (0-99); PLATELET COUNT 68 10^3/uL (150-400); RED BLOOD CELL COUNT 3.15 10^6/uL (4.40-6.38); RED CELL DISTRIBUTION WIDTH 12.9 % (11.5-15.2)
[2017-08-11 04:18] LABS: INR 1.5 (0.83-1.16); PROTIME(PATIENT) 18.1 SEC (12.0-15.0)
[2017-08-11] MEDS: ceFAZolin 2 GM/DEXTROSE 100 ML IV SCH ×3 (05:05→22:16)
[2017-08-11 05:10] LABS: ANION GAP 8 mEq/L (8-16); CALCIUM 8.6 mg/dL (8.5-10.4); CARBON DIOXIDE 22 mEq/l (22-31); CHLORIDE 110 mEq/L (97-110); CREATININE 0.8 mg/dL (0.7-1.3); GLOMERULAR FILTRATION RATE > 60; GLUCOSE 139 mg/dL (70-100); POTASSIUM 4.7 mEq/L (3.5-5.2); SODIUM 140 mEq/L (134-144)
[2017-08-11] MEDS ORDERED: HEPARIN 5,000 UNIT/0.5 ML SYR SC SCH (06:00)
[2017-08-11] MEDS: HYDROCODONE/APAP 5/325 TAB PO PRN ×4 (06:45→18:24)
--- NOTE | 2017-08-11 07:29 | SOAPPROG ---
SOAP Progress Note Assessment/Plan: POD #1: Redo sternotomy, MV repair with #34 Physio annuloplasty ring, TV repair with #32 Physio annuloplasty ring, Bill-Maze IV, exposure LCFA Severe MR/TR s/p repair - Wean dopamine as tolerated - AL to remain while on pressors, dc FC, CTs to bulb suction - SCDs/heparin SQ for DVT prophylaxis - Coumadin as per Bill-Maze protocol Long stand persistent atrial fibrillation s/p Bill-Maze 4 - Coumadin for thromboprophylaxis, INR goal 2-3, duration as per CM protocol Acute blood loss anemia with coagulopathy - Stable without the need for BP transfusions - Hold heparin SQ while platelets < 100 - Precautionary HIT ordered h/o ascending aortic repair - Stable CHF, class II, diastolic - +2 kg from pre-op weight - HF meds when appropriate Subjective: Minor incisional CP with difficulty taking deep breaths. Some memory disturbances. Objective: Vital Signs Temp Pulse Resp BP Pulse Ox 36.9 C 80 20 132/58 H 90 L 08/11/17 06:00 08/11/17 07:00 08/11/17 07:00 08/11/17 07:00 08/11/17 07:00 Laboratory Results 08/11/17 04:00 08/11/17 04:00 08/10/17 08/11/17 08/12/17 05:59 05:59 05:59 Intake Total 2390.2 Output Total 2992 305 Balance -601.8 -305 PT 18.1 SEC (12.0-15.0) H 08/11/17 04:00 INR 1.50 (0.83-1.16) H 08/11/17 04:00 Physical Exam - Physical Exam General Appearance: WD/WN, alert, no apparent distress EENT: No scleral icterus (R), No scleral icterus (L) Neck: normal inspection Respiratory: No respiratory distress Cardiac/Chest: regular rate, rhythm Abdomen: non-tender, soft, No distended Skin: normal color, warm/dry Extremities: No pedal edema Neuro/Psych: no motor/sensory deficits, alert, normal mood/affect, oriented x 3 ICD10 Worksheet Patient Problems: Problems Problem Status Onset Acute blood loss anemia Acute Status post ablation of atrial fibrillation Acute ~08/10/17 Status post mitral valve annuloplasty Acute ~08/10/17 Status post tricuspid valve repair Acute ~08/10/17 Aortic insufficiency Chronic Chronic anticoagulation Chronic Chronic atrial flutter Chronic Nonobstructive atherosclerosis of coronary artery Chronic Paroxysmal atrial fibrillation Chronic Secondary tricuspid regurgitation Chronic Severe mitral regurgitation Chronic
[2017-08-11 07:49] LABS: POTASSIUM 4.6 mEq/L (3.5-5.2)
[2017-08-11] MEDS ORDERED: ASPIRIN 81 MG CHEWABLE TAB PO SCH (09:00)
[2017-08-11] MEDS ORDERED: ASPIRIN 81 MG CHEWABLE TAB TUBE PRN (09:00)
[2017-08-11] MEDS: ASPIRIN 81 MG CHEWABLE TAB PO SCH (09:18)
[2017-08-11] MEDS: MUPIROCIN 2% 22 GM OINT NS SCH (09:18)
[2017-08-11] MEDS: PANTOPRAZOLE SODIUM 40 MG TAB PO SCH (09:19)
[2017-08-11] MEDS ORDERED: WARFARIN SODIUM 2.5 MG TAB PO ONE ×2 (16:00→18:30)
[2017-08-11] MEDS: METOCLOPRAMIDE 10 MG/2 ML VIAL IVP PRN (19:32)
[2017-08-11] MEDS: OXYCODONE/APAP 5/325 TAB PO PRN (19:54)
[2017-08-11] MEDS ORDERED: CANN-EASE 2 GM TUBE TP ONE (20:11)
[2017-08-12] MEDS: OXYCODONE/APAP 5/325 TAB PO PRN ×2 (03:17→09:54)
[2017-08-12 04:24] LABS: % IMMATURE GRANULYOCYTES 0.5 % (0.0-1.1); ABSOLUTE IMMATURE GRANULOCYTES 0.08 10^3/uL (0.00-0.10); ADD DIFF? NO; ADD MORPH? NO; ADD SCAN? NO; ATYPICAL LYMPHOCYTE FLAG 0 (0-99); FRAGMENT RBC FLAG 0 (0-99); HEMATOCRIT 30.7 % (40.0-51.0); HEMOGLOBIN 10.3 g/dL (13.7-17.5); LEFT SHIFT FLG 10 (0-99); LIPEMIA HEMOLYSIS FLAG 80 (0-99); MEAN CELL HEMOGLOBIN 35.2 pg (27.9-34.1); MEAN CELL HEMOGLOBIN CONCENTR. 33.6 g/dL (32.4-36.7); MEAN CELL VOLUME 104.8 fL (81.5-99.8); MEAN PLATELET VOLUME 11.1 fL (8.7-11.7); PLATELET CLUMPS FLAG 0 (0-99); PLATELET COUNT 69 10^3/uL (150-400); RED BLOOD CELL COUNT 2.93 10^6/uL (4.40-6.38); RED CELL DISTRIBUTION WIDTH 13.3 % (11.5-15.2)
[2017-08-12 04:32] LABS: INR 1.57 (0.83-1.16); PROTIME(PATIENT) 18.8 SEC (12.0-15.0)
[2017-08-12 04:41] LABS: ANION GAP 9 mEq/L (8-16); CALCIUM 8.5 mg/dL (8.5-10.4); CARBON DIOXIDE 23 mEq/l (22-31); CHLORIDE 105 mEq/L (97-110); CREATININE 1.2 mg/dL (0.7-1.3); GLOMERULAR FILTRATION RATE 59; GLUCOSE 167 mg/dL (70-100); SODIUM 137 mEq/L (134-144)
--- NOTE | 2017-08-12 08:07 | SOAPPROG ---
SOAP Progress Note Assessment/Plan: POD #2: Redo sternotomy, MV repair with #34 Physio annuloplasty ring, TV repair with #32 Physio annuloplasty ring, Bill-Maze IV, exposure LCFA Severe MR/TR s/p repair - CTs to bulb suction - SCDs/heparin SQ for DVT prophylaxis - Coumadin as per Bill-Maze protocol, minimum 3 months Long stand persistent atrial fibrillation s/p Bill-Maze 4 with well tolerated post-op junctional rhythm - Coumadin for thromboprophylaxis, INR goal 2-3, duration as per CM protocol Acute blood loss anemia with coagulopathy - Stable without the need for BP transfusions - Hold heparin SQ while platelets < 100 - Precautionary HIT pending h/o ascending aortic repair - Stable CHF, class II, diastolic - +3 kg from pre-op weight, well-tolerated - HF meds when appropriate Subjective: Comfortable. Pain well controlled. Denies SOB. Objective: Vital Signs Temp Pulse Resp BP Pulse Ox 36.4 C 58 L 20 125/53 H 92 08/12/17 07:34 08/12/17 07:34 08/12/17 07:34 08/12/17 07:34 08/12/17 07:34 Laboratory Results 08/12/17 04:00 08/12/17 04:00 08/11/17 08/12/17 08/13/17 05:59 05:59 05:59 Intake Total 2390.2 1599 Output Total 2992 1330 Balance -601.8 269 PT 18.8 SEC (12.0-15.0) H 08/12/17 04:00 INR 1.57 (0.83-1.16) H 08/12/17 04:00 Physical Exam - Physical Exam General Appearance: WD/WN, alert, no apparent distress EENT: No scleral icterus (R), No scleral icterus (L) Neck: normal inspection Respiratory: No respiratory distress Cardiac/Chest: other (JR 50s) Abdomen: non-tender, soft, No distended Skin: normal color, warm/dry Extremities: No pedal edema Neuro/Psych: no motor/sensory deficits, alert, normal mood/affect, oriented x 3 ICD10 Worksheet Patient Problems: Problems Problem Status Onset Acute blood loss anemia Acute Status post ablation of atrial fibrillation Acute ~08/10/17 Status post mitral valve annuloplasty Acute ~08/10/17 Status post tricuspid valve repair Acute ~08/10/17 Aortic insufficiency Chronic Chronic anticoagulation Chronic Chronic atrial flutter Chronic Nonobstructive atherosclerosis of coronary artery Chronic Paroxysmal atrial fibrillation Chronic Secondary tricuspid regurgitation Chronic Severe mitral regurgitation Chronic
[2017-08-12] MEDS ORDERED: POTASSIUM CL 20 MEQ TAB PO SCH (09:30)
[2017-08-12] MEDS: PANTOPRAZOLE SODIUM 40 MG TAB PO SCH (09:54)
[2017-08-12] MEDS: ASPIRIN 81 MG CHEWABLE TAB PO SCH (09:54)
[2017-08-12] MEDS: SENNOSIDES/DOCUSATE SODIUM TAB PO SCH ×2 (09:54→21:03)
[2017-08-12] MEDS: FUROSEMIDE 40 MG TAB PO SCH (10:42)
--- NOTE | 2017-08-12 13:19 | ECHO ---
[email or web address] [address] [address] Main: [phone] Fax: Transthoracic Echocardiogram Name: DEIVN ALICIA MR#: [id number] Study Date: 08/12/2017 Study Time: 09:55 AM Date of : 1940 Age: 76 year(s) Height: 177.8 cm (70 in.) Weight: 73.48 kg (162 lb.) BSA: 1.91 m2 Gender: Male Examination: Echo Indication: S/P TV and MV annuplasty ring, MAZE, old asc AO root repair, now junctional rhthym Image Quality: Adequate Contrast: Requested by: Pepe Teixeira BP: 117 mmHg/44 mmHg Heart Rate: 54 bpm Rhythm: Indication: S/P TV and MV annuplasty ring, MAZE, old asc AO root repair, now junctional rhthym Procedure Staff Offal Separator: Anna Vanegas Reading Physician: Maguns Montez Requesting Provider: Conclusions: Mild concentric LV hypertrophy. Normal global systolic LV function. EF is 67 %. The left atrium is moderately dilated. The right atrium is mildly dilated. An annuloplasty ring is noted in the mitral valve position. Moderate aortic valve regurgitation is present. Mild tricuspid regurgitation is present. Trivial pulmonic valve regurgitation. 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 Measurements: Chambers Valvular Assessment AV/MV Valvular Assessment TV/PV Normal Normal Normal Name Value Range Name Value Range Name Value Range Ao Paty (2D): 3.4 cm (1.4 cm-2.6 AV Vmax: 1.52 m/s (1 m/s-1.7 TR Vmax: 2.66 mm/s ( - ) cm) m/s) TR PGmax: 28 mmHg ( - ) IVSd (2D): 0.9 cm (0.6 cm-1.1 AV maxP mmHg ( - ) syst. PAP: 33 mmHg ( - ) cm) LVOT Vmax: 0.93 m/s (0.7 m/s-1.1 PV Vmax: 1.05 m/s (0.6 m/s-0.9 LVDd (2D): 4.5 cm (4.2 cm-5.9 m/s) m/s) cm) FLORENCIO (Vmax): 2.3 cm2 ( - ) PV PGmax: 4 mmHg ( - ) LVDs (2D): 2.8 cm (2.1 cm-4 AR (PHT): 455 ms ( - ) cm) MV E Vmax: 1.57 m/s ( - ) LVPWd (2D): 1.0 cm (0.6 cm-1 MV meanP mmHg ( - ) cm) MV PHT: 0.060 s ( - ) LVOTd 2.2 cm 2.2 cm mm MVA (PHT): 3.7 s ( - ) LVEF (2D): 67 (>=54 %) Continued Measurements: Patient: DEVIN ALICIA Study Date: 08/12/2017 Page 1 of 2 09:55 AM Chambers Valvular Assessment AV/MV Valvular Assessment TV/PV Name Value Name Value Name Value LADs Lon.9 cm MV VTI: 46.60 cm CVP (est.): 5 mmHg LA Area: 25.9 cm2 AR Vmax: 3.71 cm/s LA Volume: 100 ml LA Volume Index: 52.4 ml/m2 RA Area: 18.2 cm2 Additional Vessels Name Value Ao Ascendin.7 cm Findings: Left Ventricle: Normal size left ventricle. Mild concentric LV hypertrophy. Normal global systolic LV function. EF is 67 %. No regional wall motion abnormality. Unable to assess diastolic dysfunction. Right Ventricle: Normal size right ventricle. Normal RV function. Left Atrium: The left atrium is moderately dilated. Right Atrium: The right atrium is mildly dilated. Mitral Valve: The mitral valve leaflets appear redundant. There is no mitral valve regurgitation. An annuloplasty ring is noted in the mitral valve position. Aortic Valve: The aortic valve is tri-leaflet. Aortic sclerosis is present. Moderate aortic valve regurgitation is present. No aortic valve stenosis is present. Tricuspid Valve: Mild tricuspid regurgitation is present. Borderline elevated pumonary artery pressure. There is a tricuspid valve ring. Pulmonic Valve: The pulmonic valve is normal in appearance and function. Trivial pulmonic valve regurgitation. 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 Normal size aortic root measuring 3.4 cm. Normal size ascending aorta measuring 2.7 cm. Pericardium: No pericardial effusion. No pleural effusion. (No Signature Object) Patient: DEVIN ALICIA Study Date: 08/12/2017 Page 2 of 2 09:55 AM [id number]
[2017-08-12 14:10] LABS: POTASSIUM 4.9 mEq/L (3.5-5.2)
[2017-08-12] MEDS ORDERED: WARFARIN SODIUM 2.5 MG TAB PO ONE (16:00)
--- NOTE | 2017-08-12 16:46 | GCON ---
[f rep st] CONSULTATION PULMONARY/CRITICAL CARE CONSULTATION DATE OF CONSULTATION: 08/10/2017 REFERRING PHYSICIAN: Pepe Teixeira DO REASON FOR CONSULTATION: Evaluation and management of hyperglycemia and anemia, as well as postop re spiratory failure. HISTORY OF PRESENT ILLNESS: The patient is a 76-year-old male with a history of ascending aortic ane urysm repair in 2008, who had a history of mitral regurgitation as well as atrial fibrillation. This has been followed clinically, but he was developing increasing dyspnea with exertion as well as some lower extremity edema. He was seen by Dr. Solomon, who recommended surgical repair. He was seen by Dr Braeden Teixeira, who proceeded with mitral valve repair, tricuspid valve annuloplasty and a Bill-Maze procedur e. Estimated blood loss was 100 to 500 cc. The patient was returned to the intensive care unit intu bated. He is just starting to wake up and states that he does have some sternal pain and difficulty taking deep breaths because of this pain. PAST MEDICAL HISTORY: 1. Atrial tachycardia. 2. History of coronary artery disease. 3. Thoracic aortic aneurysm, status post repair. MEDICATIONS: At the time of admission include Eliquis, Lipitor, lisinopril and metoprolol. ALLERGIES: Azithromycin. SOCIAL HISTORY: The patient does not smoke and denies significant alcohol intake. FAMILY HISTORY: Unremarkable. REVIEW OF SYSTEMS: Unobtainable, as the patient is intubated. PHYSICAL EXAMINATION: GENERAL: The patient is intubated and sedated. VITAL SIGNS: His blood press ure is 112/65 with a heart rate of 81. His temperature is 34.7. His oxygen saturations are 100% on 40% oxygen. HEENT: Normocephalic and atraumatic. No icterus. NECK: No JVD. Trachea is midline. CHEST: Clear to auscultation. CARDIAC: Regular rate and rhythm without murmur. ABDOMEN: Soft, n ontender. Bowel sounds are present. EXTREMITIES: No clubbing, cyanosis or edema. NEUROLOGIC: The patient is sedated, but arousable, and able to move all 4 extremities with no appreciable focal niru r weakness. LABORATORY: Hemoglobin is 12.6, down from 14.2. Blood glucose is 181. A chest x-ray shows some left lower lobe atelectasis and pulmonary venous hypertension. Images revie wed. ASSESSMENT: 1. Status post mitral valve and tricuspid valve repairs, and Bill-Maze procedure. The patient is doi ng well postoperatively, but remains intubated. His vital signs are stable. 2. Postoperative respiratory failure. This is due to the patient's anesthesia, which appears to be wearing off, and I expect that he can be extubated soon. 3. Hyperglycemia. The patient does not have a history of diabetes. It is likely that this will req uire insulin in immediate postoperative period. 4. Anemia. This is mild and likely due to expected acute blood loss perioperatively. RECOMMENDATIONS: 1. Insulin drip. 2. Follow hemoglobin levels. 3. Hold sedation and, hopefully, we will be able to extubate the patient soon. /[id number]/MODL
[2017-08-12] MEDS: HYDROCODONE/APAP 5/325 TAB PO PRN (19:28)
[2017-08-13] MEDS: HYDROCODONE/APAP 5/325 TAB PO PRN ×2 (05:45→20:35)
[2017-08-13 06:02] LABS: HEMATOCRIT 29.3 % (40.0-51.0); HEMOGLOBIN 9.7 g/dL (13.7-17.5); MEAN CELL HEMOGLOBIN 34.2 pg (27.9-34.1); MEAN CELL HEMOGLOBIN CONCENTR. 33.1 g/dL (32.4-36.7); MEAN CELL VOLUME 103.2 fL (81.5-99.8); RED BLOOD CELL COUNT 2.84 10^6/uL (4.40-6.38); RED CELL DISTRIBUTION WIDTH 13.2 % (11.5-15.2)
[2017-08-13 06:12] LABS: INR 3.42 (0.83-1.16)
[2017-08-13 06:14] LABS: ANION GAP 4 mEq/L (8-16); CALCIUM 8.5 mg/dL (8.5-10.4); CARBON DIOXIDE 30 mEq/l (22-31); CHLORIDE 102 mEq/L (97-110); CREATININE 0.8 mg/dL (0.7-1.3); GLOMERULAR FILTRATION RATE > 60; GLUCOSE 113 mg/dL (70-100); POTASSIUM 4.4 mEq/L (3.5-5.2); SODIUM 136 mEq/L (134-144)
--- NOTE | 2017-08-13 07:39 | SOAPPROG ---
SOAP Progress Note Assessment/Plan: POD #3: Redo sternotomy, MV repair with #34 Physio annuloplasty ring, TV repair with #32 Physio annuloplasty ring, Bill-Maze IV, exposure LCFA Severe MR/TR s/p repair - CTs removed - SCDs/heparin SQ for DVT prophylaxis - Coumadin as per Bill-Maze protocol, minimum 3 months Long stand persistent atrial fibrillation s/p Bill-Maze 4 with post-op JR - Coumadin for thromboprophylaxis, INR goal 2-3, duration as per CM protocol - Likely PPM once coagulopathy resolved Acute blood loss anemia with coagulopathy - Stable without the need for BP transfusions - Hold heparin SQ while platelets < 100 - Precautionary HIT pending h/o ascending aortic repair - Stable CHF, class II, diastolic - +2 kg from pre-op weight, well-tolerated - HF meds when appropriate Subjective: Feels well. Slept well. Some minor pain at CT sites. Denies SOB. Objective: Vital Signs Temp Pulse Resp BP Pulse Ox 37.1 C 90 14 121/64 H 93 08/13/17 04:00 08/13/17 04:00 08/13/17 04:00 08/13/17 04:00 08/13/17 04:00 Laboratory Results 08/13/17 05:45 08/13/17 05:45 08/12/17 08/13/17 08/14/17 05:59 05:59 05:59 Intake Total 1599 1080 Output Total 1330 1920 Balance 269 -840 PT 35.0 SEC (12.0-15.0) H D 08/13/17 05:45 INR 3.42 (0.83-1.16) H 08/13/17 05:45 Physical Exam - Physical Exam General Appearance: WD/WN, alert, no apparent distress EENT: No scleral icterus (R), No scleral icterus (L) Neck: normal inspection Respiratory: No respiratory distress Cardiac/Chest: bradycardia Abdomen: non-tender, soft, No distended Skin: normal color, warm/dry Extremities: No pedal edema Neuro/Psych: no motor/sensory deficits, alert, normal mood/affect, oriented x 3 ICD10 Worksheet Patient Problems: Problems Problem Status Onset Acute blood loss anemia Acute Status post ablation of atrial fibrillation Acute ~10/12/17 Status post mitral valve annuloplasty Acute ~08/10/17 Status post tricuspid valve repair Acute ~08/10/17 Aortic insufficiency Chronic Chronic anticoagulation Chronic Chronic atrial flutter Chronic Nonobstructive atherosclerosis of coronary artery Chronic Paroxysmal atrial fibrillation Chronic Secondary tricuspid regurgitation Chronic Severe mitral regurgitation Chronic
--- NOTE | 2017-08-13 10:11 | PDCONSULT ---
Lapping Machine Set Up Operator Note: Cardiology was asked to place a permanent pacer this morning. Initial concerns with elevated INR (>3) and drop in PLTs (~60) for this procedure to be performed today. There have been some rather acute changes to the pacing ability of the temp wires placed post operatively. Today, the patient is post operative day 3 for redo mitral valve repair, tricuspid valve repair, Bill Maze IV with MELLISSA closure I have spoken with Dr. Aspen Montez about the procedure needs as well as the biometrics (INR, PLT, post operative date). Dr. Aspen Montez to perform PPM placement today after speaking with patient personally and having consents signed.
[2017-08-13] MEDS ORDERED: BACITRACIN IRRIGATION/NS 50,000 UNITS/1,000 ML BTL IRR ONE (10:25)
[2017-08-13] MEDS ORDERED: DIAZEPAM 5 MG TAB PO ONE (10:25)
[2017-08-13] MEDS ORDERED: diphenhydrAMINE 25 MG CAP PO ONE (10:25)
[2017-08-13] MEDS ORDERED: ceFAZolin 2 GM/DEXTROSE 100 ML IV ONE (10:25)
[2017-08-13] MEDS ORDERED: NS 1,000 ML IV ONE (10:25)
--- NOTE | 2017-08-13 10:25 | PDHPUP ---
History & Physical Update H&P update statement: This history and physical update is based on an assessment of the patient which was completed after admission or registration (within 24 hours), but prior to the surgery/procedure. H&P update: H&P reviewed & patient examined, no change in patient's condition since H&P completed
--- NOTE | 2017-08-13 10:25 | PDPROPOC ---
Sedation Plan of Care Sedation Plan of Care: vital signs stable, mental status noted, patient educated of risks, benefits, alternatives, patient can tolerate sedation ASA Classification: ASA 3 Planned drugs: fentanyl, midazolam Mallampati Score: Class 3 Mallampati Reference Image: Patient passed 3-3-2 rule?: Yes
[2017-08-13] MEDS ORDERED: LIDOCAINE 1% 300 MG/30 ML SDV ONE (10:37)
[2017-08-13] MEDS ORDERED: BUPIVACAINE 0.5% 30 ML SDV ONE (10:38)
[2017-08-13] MEDS ORDERED: MIDAZOLAM 2 MG/2 ML VIAL ONE (10:38)
[2017-08-13] MEDS ORDERED: fentaNYL 100 MCG/2 ML INJ ONE ×2 (10:38→11:49)
[2017-08-13] MEDS: PANTOPRAZOLE SODIUM 40 MG TAB PO SCH (11:19)
[2017-08-13] MEDS: ASPIRIN 81 MG CHEWABLE TAB PO SCH (11:19)
[2017-08-13] MEDS: ATORVASTATIN CALCIUM 40 MG TAB PO SCH (11:19)
[2017-08-13] MEDS: FUROSEMIDE 40 MG TAB PO SCH (11:19)
[2017-08-13] MEDS: SENNOSIDES/DOCUSATE SODIUM TAB PO SCH ×2 (11:20→20:35)
--- NOTE | 2017-08-13 13:11 | EPPROC ---
Electrophysiology Procedure Note: PROCEDURE PERFORMED: Implantation of an A/V Pacemaker Fluoroscopy INDICATION: This is a 76 yr old with recent TVR, MVR, who had SSS and post surgery had become dependent on the temporary pacemaker. His RV lead had suboptimal capture and hence it was decided to implant a dual chamber pacemaker. Pt had high INR and low platelet count. Hence pt was explained high risk nature of the procedure. He understood the risk and was agreeable to it. Hence it was decided to undertake the procedure. PROCEDURE NOTE: Patient presented to the cardiac catheterization laboratory in a fasting, post absorptive state. Cardiac pharmaceutical laboratory technician nurse administered moderate sedation. The left infraclavicular area was prepped and draped in the usual sterile fashion. Lidocaine plus bupivacaine was used for local anesthesia. Left subclavian venography was performed by injection of iodinated contrast into the left antecubital vein. This was done to assure patency of the vein and also to assess for any anatomical aberrations. Using a combination of blunt and sharp dissection and electrocautery, the dissection was carried down to the prepectoral fascia. All bleeding was controlled with electrocautery. Fluoroscopy was utilized during the entire procedure for venous access and placement of the leads. Using the usual technique, left cephalic vein was accessed and a glidewire was placed. Through this initially a 9F and later a 7F sheath was passed. Placement of the guidewires into the venous system was confirmed by low- pressure blood return and also by visualizing the guidewires advancing into the inferior vena cava. A purse string suture was applied around the guidewires. An active fixation ventricular lead was advanced into the right ventricular apex and screwed in place. An active fixation atrial lead was advanced into the right atrial appendage and screwed in place. The peel away sheaths were removed. Pacing thresholds, sensing parameters and lead impedances were measured. There was no diaphragmatic stimulation at maximum output. The leads were sutured to the prepectoral fascia with 3 nonabsorbable sutures each. The pocket was created and it was flushed using antibiotic solution. It was inspected for any bleeding. The leads were attached to the pacemaker securely. The pacemaker was inserted into the pocket and secured in place with a nonabsorbable suture. Fluoroscopy was performed in [place] and [place] planes to verify right-sided placement of the leads. Also fluoroscopy of the pacemaker pocket was performed. The pacemaker pocket was closed in 3 layers with absorbable vicryl sutures. Steristrips were placed. Appropriate dressing was applied. The patient left the cardiac catheterization laboratory in stable condition. Serial Numbers: Device: [id number] Edora SN [id number] Atrial Lead: Biotronik Solia S53 SN [id number] Ventricular Lead: [employer]ik Solia S53 SN [id number] Stimulation Thresholds & Impedance Measurements: Atrial Lead 1.1mV, 1.4@1.0ms, 370Ohms Ventricular Lead 5.7mV, 0.5@0.4ms, 604Ohms [place] Pacing Parameters Pacing mode: DDD Lower rate: 70 Upper tracking rate: 120 Upper sensor rate: 120 Patient Problems: Problems Problem Status Onset Acute blood loss anemia Acute Status post ablation of atrial fibrillation Acute ~08/10/17 Status post mitral valve annuloplasty Acute ~08/10/17 Status post tricuspid valve repair Acute ~08/10/17 Aortic insufficiency Chronic Chronic anticoagulation Chronic Chronic atrial flutter Chronic Nonobstructive atherosclerosis of coronary artery Chronic Paroxysmal atrial fibrillation Chronic Secondary tricuspid regurgitation Chronic Severe mitral regurgitation Chronic
--- NOTE | 2017-08-13 14:51 | CPEKG ---
Heart Rate: 71 RR Interval: 845 P-R Interval: 238 QRSD Interval: 132 QT Interval: 496 QTC Interval: 540 P [place]: 0 QRS [place]: -83 T Wave [place]: 85 EKG Severity - ABNORMAL ECG - EKG Impression: ATRIAL-VENTRICULAR DUAL-PACED RHYTHM EKG Impression: AV SEQUENTIAL PACING HAS REPLACED ATRIAL FLUTTER NOTED ON PRIOR ECG Electronically Signed By: Jose Juares 14-Aug-2017 16:24:54
[2017-08-13] MEDS: fentaNYL 25 MCG PATCH TD SCH (16:43)
[2017-08-13 20:18] LABS: HEPARIN INDUCED ANTIBODY Negative (Negative); HEPARIN-PF4 IgG ANTIBODY ELISA < 0.075 OD (<0.400)
[2017-08-13] MEDS: OXYCODONE/APAP 5/325 TAB PO PRN (22:05)
[2017-08-14 06:16] LABS: % IMMATURE GRANULYOCYTES 0.2 % (0.0-1.1); ABSOLUTE IMMATURE GRANULOCYTES 0.02 10^3/uL (0.00-0.10); ADD DIFF? NO; ADD MORPH? NO; ADD SCAN? NO; ATYPICAL LYMPHOCYTE FLAG 0 (0-99); FRAGMENT RBC FLAG 0 (0-99); HEMATOCRIT 26.9 % (40.0-51.0); HEMOGLOBIN 8.9 g/dL (13.7-17.5); LEFT SHIFT FLG 0 (0-99); LIPEMIA HEMOLYSIS FLAG 80 (0-99); MEAN CELL HEMOGLOBIN 34.2 pg (27.9-34.1); MEAN CELL HEMOGLOBIN CONCENTR. 33.1 g/dL (32.4-36.7); MEAN CELL VOLUME 103.5 fL (81.5-99.8); MEAN PLATELET VOLUME 10.3 fL (8.7-11.7); PLATELET CLUMPS FLAG 0 (0-99); PLATELET COUNT 79 10^3/uL (150-400); RED CELL DISTRIBUTION WIDTH 13.1 % (11.5-15.2)
[2017-08-14 06:26] LABS: INR 3.21 (0.83-1.16); PROTIME(PATIENT) 33.3 SEC (12.0-15.0)
--- NOTE | 2017-08-14 06:38 | SOAPPROG ---
SOAP Progress Note Assessment/Plan: Assessment: POD#4 Redo sternotomy, complex MV repair with #34 Physio ring, TVA with #34 MC3 ring, Bill-Maze IV procedure, exposure LCFA POD#1 Biotronik dual chamber permanent pacemaker, lower rate 70 bpm. Severe MR/secondary TR, both amenable to repair - CTs removed - Antithrombotic prophylaxis with Coumadin as per Bill-Maze protocol. Adjunctive baby ASA for nonobstructive CAD (hold for INR > 3). Long standing persistent atrial flutter with more recent atrial fibrillation, s/ p Bill-Maze 4 - Postop pacer dependent JR and inconsistent Vcapture. PPM placed yest. Remains paced. AF prophylaxis deferred. - Coumadin for thromboprophylaxis, INR goal 2-3, duration TBD at 3 mo as per CM protocol. Eventual switch back to Eliquis possible. - INR supratherapeutic after 5 mg (2.5 mg x 2). Now beginning to drop appropriately Chronic dCHF, class II - Post op BiV systolic fx preserved. - Actively diuresing moderate fluid overload with stable renal fx - HR controlled. Acute blood loss anemia with coagulopathy - Stable without the need for blood or blood product transfusions - Platelet count persistently depressed, but now beginning to rebound. - Precautionary HIT negative - Ck LFTs h/o ascending aortic repair with mod AI - Stable. Surveillance per cards. Plan: Cont daily lasix 40 mg. Cont to hold coumadin. Resume ASA tomorrow if INR < 3. Clip TCPWs. Decrease pacer lower rate to 65. Cont aggressive pulm toilet. Ok for relocation to U. 08/14/17 06:40 Subjective: Doing ok. Slept great. OOB to BR without dizziness. Hungry. Objective: Vital Signs Temp Pulse Resp BP Pulse Ox 36.8 C 73 12 118/62 93 08/14/17 04:00 08/14/17 04:00 08/14/17 04:00 08/14/17 04:00 08/14/17 04:00 Laboratory Results 08/14/17 06:00 08/13/17 08/14/17 08/15/17 05:59 05:59 05:59 Intake Total 1080 1530 Output Total 1920 1350 Balance -840 180 PT 33.3 SEC (12.0-15.0) H 08/14/17 06:00 INR 3.21 (0.83-1.16) H 08/14/17 06:00 DDD paced. Function intact by interrogation this am, underlying JR. Lower rate turned down to 65. SBPs 110 (MAPs 70s). Min suppl O2 req. CXR -> No PTX. Mild pulm vasc congestion. Small bilateral pl eff, L>R. RA lead with a loop posteriorly. Balanced I/Os. +5 kg overall. Platelet count rising. HIT neg. INR falling appropriately. Physical Exam - Physical Exam General Appearance: alert, no apparent distress Respiratory: crackles (bases) Cardiac/Chest: regular rate, rhythm (AV paced), other (Sternotomy and left groin CDI. A&V wires intact) Abdomen: non-tender, soft Skin: warm/dry Extremities: other (no visible edema) ICD10 Worksheet Patient Problems: Problems Problem Status Onset Acute blood loss anemia Acute Status post ablation of atrial fibrillation Acute ~08/10/17 Status post mitral valve annuloplasty Acute ~08/10/17 Status post tricuspid valve repair Acute ~08/10/17 Aortic insufficiency Chronic Chronic anticoagulation Chronic Chronic atrial flutter Chronic Nonobstructive atherosclerosis of coronary artery Chronic Paroxysmal atrial fibrillation Chronic Secondary tricuspid regurgitation Chronic Severe mitral regurgitation Chronic
[2017-08-14 06:44] LABS: ANION GAP 5 mEq/L (8-16); CALCIUM 8.1 mg/dL (8.5-10.4); CARBON DIOXIDE 28 mEq/l (22-31); CHLORIDE 102 mEq/L (97-110); CREATININE 0.6 mg/dL (0.7-1.3); GLOMERULAR FILTRATION RATE > 60; GLUCOSE 109 mg/dL (70-100); POTASSIUM 4.3 mEq/L (3.5-5.2); SODIUM 135 mEq/L (134-144)
[2017-08-14] MEDS: SENNOSIDES/DOCUSATE SODIUM TAB PO SCH ×2 (08:50→21:33)
[2017-08-14] MEDS: ATORVASTATIN CALCIUM 40 MG TAB PO SCH (08:50)
[2017-08-14] MEDS: HYDROCODONE/APAP 5/325 TAB PO PRN ×4 (08:50→21:33)
[2017-08-14] MEDS: PANTOPRAZOLE SODIUM 40 MG TAB PO SCH (08:50)
[2017-08-14] MEDS: FUROSEMIDE 40 MG TAB PO SCH (08:50)
--- NOTE | 2017-08-14 08:58 | CPEKG ---
Heart Rate: 79 RR Interval: 759 P-R Interval: 228 QRSD Interval: 136 QT Interval: 484 QTC Interval: 556 P Cutler: -88 QRS Cutler: -80 T Wave Cut[place]: 92 EKG Severity - ABNORMAL ECG - EKG Impression: VENTRICULAR-PACED COMPLEXES EKG Impression: NONSPECIFIC IVCD WITH LAD EKG Impression: APPEARS TO BE UNDERLYING ATRIAL FIBRILLATION Electronically Signed By: Jose Juares 17-Aug-2017 13:53:00
--- NOTE | 2017-08-14 13:28 | PDCARPN ---
Cardiology Progress Note Chief Complaint: Patient reports ongoing fatigue symptoms. Assessment/Plan: Assessment: 76-year-old male who with significant past history that includes mitral regurgitation, paroxysmal atrial fibrillation, CAD (mild, non flow limiting based off of cardiac catheterization 08/09), history of ascending aortic repair and diabetes. Underwent repeat mitral valve repair tricuspid annuloplasty and left and right-sided Bill Maze procedure on August 10. 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 Patient also noted post surgery to be in junctional rhythm, with inconsistent ventricular capture by surgical epicardial wires, underwent ppm implantation by Dr. Montez on August 13. Today, patient has been AV paced or a sense and V pace comma no malignant arrhythmias have been noted. Device check done by [employer] rep shows functioning within normal limits, noted patient did have higher atrial thresholds of 1.7 during lead implantation, 1.8 today with no significant change. [place] this is due to recent Bill Maze procedure by Dr. Montez. Patient denies of any chest pressure or or pain. Device implantation site, left anterior chest, mild ecchymotic, but no hematoma, bleeding, pain, redness, swelling, or drainage noted. Chest x-ray today showing no delayed pneumothorax from ppm implantation. RA lead is projected posteriorly, in which how it was placed. Plan: 1. Junctional rhythm status post valvular surgery: Permanent pacemaker implantation done, no complications, device check showing functioning within normal limits, lower rate decreased to [address] surgeries request. 2. Longstanding persistent atrial flutter atrial fibrillation: Status post Bill Maze procedure, currently AV paced, has been instituted back on warfarin therapy , supratherapeutic today, warfarin is on hold, being followed by CT surgery. Can consider restarting metoprolol if needed. 3. Valvular heart disease: Severe MR and TR, both repaired by Dr. Teixeira. Patient also noted to have moderate AI. Postop echo showing no MR and mild TR. 4. Diastolic heart failure: Status post valvular repair, patient is being diuresed per CT surgery comma defer to recommendations. 5. Anemia with coagulopathy: Postop valve surgery H&H mildly decreased from yesterday status post ppm implantation. No blood products if needed at this time. Platelet count also noted to be down, but with improvement today. Continue to monitor. 6. CAD: Non flow limiting based off of recent cardiac catheterization, minimal , restart on aspirin therapy when deemed safe by surgery. Patient has been started on atorvastatin. I have discussed with patient postop pacemaker discharge instructions. They have scheduled him for one-week follow-up appointment in [place] office for device and wound check. One-month follow-up with Dr. Montez. We will sign off at this time, please feel free to call us with any questions or concerns. 08/14/17 13:27 Subjective: Patient reports ongoing fatigue, but denies of any chest pressure or pain suggesting of ischemia. Reports shortness of breath, but reports improvement over the last few days. Denies of any palpitations, lightheadedness, near- syncope, or syncopal events. Reviewed/Discussed With: other ([facility] surgery, Dr Montez, [employer] rep) Objective: Vital Signs (8 Hrs) Temp Pulse Resp BP Pulse Ox 08/14/17 11:38 36.8 C 76 18 115/56 L 96 08/14/17 08:55 77 96 08/14/17 08:00 36.6 C 75 11 L 103/49 L 94 Intake/Output (24 Hrs) 08/13/17 08/14/17 08/15/17 05:59 05:59 05:59 Intake Total 1080 1530 Output Total 1920 1350 Balance -840 180 Intake: Oral (ml) 1080 1050 IV Intake (ml) 480 Output: Urine (ml) 1510 1350 Urinal 1510 1350 Chest Tube Output (ml) 410 Location 2 50 Location 3 160 Mediastinal 200 Other: Weight 72.9 kg 73 kg Number of Voids Urinal 1 4 Result Diagrams: 08/14/17 06:00 08/14/17 06:00 - Physical Exam Constitutional: WDWN, no apparent distress Ears, Nose, Mouth, Throat: moist mucous membranes Cardiovascular: regular rate and rhythm, systolic murmur (1/6 right upper chest) , pulses symmetric bilat, No jugular vein distention (4 cm above sternal notch at a 45 degree angle), No carotid bruit Peripheral Pulses: 1+: dorsalis-pedis (R), dorsalis-pedis (L), 2+: carotid (R), carotid (L) Respiratory: other (Lungs are diminished in bases bilateral, no rhonchi, rales, or wheezing noted. No accessary muscle use, no intercostal muscle retraction noted) Gastrointestinal: normoactive bowel sounds Skin: warm, other (Sternotomy incision midsternal, with no redness, swelling, or drainage noted. Pacemaker incision, left anterior chest, no redness, swelling , or drainage, mild ecchymosis around incision site, incision intact with Steri- Strips, dressing change done at this time.), No no edema (Trace pedal edema bilateral lower extremities) Neurologic: AAOx3 Psychiatric: cooperative, following commands ICD10 Worksheet Patient Problems: Problems Problem Status Onset Paroxysmal atrial fibrillation Chronic Chronic atrial flutter Chronic Nonobstructive atherosclerosis of coronary artery Chronic Acute blood loss anemia Acute Chronic anticoagulation Chronic Status post ablation of atrial fibrillation Acute ~08/10/17 Status post tricuspid valve repair Acute ~08/10/17 Status post mitral valve annuloplasty Acute ~08/10/17 Aortic insufficiency Chronic Secondary tricuspid regurgitation Chronic Severe mitral regurgitation Chronic
--- NOTE | 2017-08-14 17:32 | ASMTCMCOM ---
CM Note CM Note Notes: Patient had a pacemaker placed on Monday, s/p TVR and MVR. Complaints of fatigue. Therapies recommending SNF Rehab. Patient interested in going to [facility]- close to his home. Patient transferred to . [facility] to follow. Date Signed: 08/14/2017 05:31 PM Electronically Signed By:Trish Hill LCSW
[2017-08-15] MEDS: ONDANSETRON 4 MG/2 ML VIAL IVP PRN ×2 (02:19→19:42)
[2017-08-15 04:51] LABS: HEMATOCRIT 25.1 % (40.0-51.0); HEMOGLOBIN 8.5 g/dL (13.7-17.5); MEAN CELL HEMOGLOBIN 34.4 pg (27.9-34.1); MEAN CELL HEMOGLOBIN CONCENTR. 33.9 g/dL (32.4-36.7); MEAN CELL VOLUME 101.6 fL (81.5-99.8); RED BLOOD CELL COUNT 2.47 10^6/uL (4.40-6.38); RED CELL DISTRIBUTION WIDTH 12.8 % (11.5-15.2)
[2017-08-15 05:03] LABS: ALANINE AMINOTRANSFERASE 29 IU/L (21-72); ALBUMIN 2.7 g/dL (3.5-5.0); ALKALINE PHOSPHATASE 46 IU/L (38-126); ANION GAP 6 mEq/L (8-16); ASPARTATE AMINOTRANSFERASE 29 IU/L (17-59); BILIRUBIN,TOTAL 1.3 mg/dL (0.1-1.4); CALCIUM 7.9 mg/dL (8.5-10.4); CARBON DIOXIDE 31 mEq/l (22-31); CHLORIDE 96 mEq/L (97-110); CREATININE 0.6 mg/dL (0.7-1.3); GLOMERULAR FILTRATION RATE > 60; GLUCOSE 109 mg/dL (70-100); POTASSIUM 3.8 mEq/L (3.5-5.2); SODIUM 133 mEq/L (134-144); TOTAL PROTEIN 4.8 g/dL (6.3-8.2)
[2017-08-15 05:06] LABS: INR 2.48 (0.83-1.16); PROTIME(PATIENT) 27.1 SEC (12.0-15.0)
--- NOTE | 2017-08-15 07:58 | SOAPPROG ---
SOAP Progress Note Assessment/Plan: POD #5: Redo sternotomy, MV repair with #34 Physio annuloplasty ring, TV repair with #32 Physio annuloplasty ring, Bill-Maze IV, exposure LCFA POD #1: Dual chambered PPM placement Severe MR/TR s/p repair - All tubes/wires removed - SCDs/Coumadin for DVT prophylaxis - Coumadin as per Bill-Maze protocol, minimum 3 months Long stand persistent atrial fibrillation s/p Bill-Maze 4 with post-op JR s/p dual-chambered PPM placement - Coumadin for thromboprophylaxis, INR goal 2-3, duration as per CM protocol Acute blood loss anemia with coagulopathy - Stable without the need for BP transfusions - HIT negative, platelets < 100 h/o ascending aortic repair - Stable CHF, class II, diastolic - At baseline weight - Continue daily Lasix Disposition - Pt would like to be discharged to SNF as his has mobility issues and will not be able to help him - will discuss with Dr. Teixeira Subjective: Denies pain/SOB. Walked this morning. Didn't sleep so well. Objective: Vital Signs Temp Pulse Resp BP Pulse Ox 36.7 C 77 18 123/71 H 97 08/15/17 04:00 08/15/17 04:00 08/15/17 04:00 08/15/17 04:00 08/15/17 04:00 Laboratory Results 08/15/17 04:09 08/15/17 04:09 08/14/17 08/15/17 08/16/17 05:59 05:59 05:59 Intake Total 1530 850 Output Total 1350 400 Balance 180 450 PT 27.1 SEC (12.0-15.0) H 08/15/17 04:09 INR 2.48 (0.83-1.16) H 08/15/17 04:09 Physical Exam - Physical Exam General Appearance: WD/WN, alert, no apparent distress EENT: No scleral icterus (R), No scleral icterus (L) Neck: normal inspection Respiratory: No respiratory distress Cardiac/Chest: regular rate, rhythm Abdomen: non-tender, soft, No distended Skin: normal color, warm/dry Extremities: No pedal edema Neuro/Psych: no motor/sensory deficits, alert, normal mood/affect, oriented x 3 ICD10 Worksheet Patient Problems: Problems Problem Status Onset Acute blood loss anemia Acute Status post ablation of atrial fibrillation Acute ~08/10/17 Status post mitral valve annuloplasty Acute ~08/10/17 Status post tricuspid valve repair Acute ~08/10/17 Aortic insufficiency Chronic Chronic anticoagulation Chronic Chronic atrial flutter Chronic Nonobstructive atherosclerosis of coronary artery Chronic Paroxysmal atrial fibrillation Chronic Secondary tricuspid regurgitation Chronic Severe mitral regurgitation Chronic
[2017-08-15] MEDS: FUROSEMIDE 40 MG TAB PO SCH (09:12)
[2017-08-15] MEDS: PANTOPRAZOLE SODIUM 40 MG TAB PO SCH (09:12)
[2017-08-15] MEDS: ATORVASTATIN CALCIUM 40 MG TAB PO SCH (09:12)
[2017-08-15] MEDS: SENNOSIDES/DOCUSATE SODIUM TAB PO SCH ×2 (09:13→20:04)
[2017-08-15] MEDS: ASPIRIN 81 MG CHEWABLE TAB PO SCH (09:25)
--- NOTE | 2017-08-15 13:23 | ASMTCMCOM ---
CM Note CM Note Notes: Per cardiology JENNA Fallon, patient will likely d/c to SNF tomorrow. Referral sent to [facility], and Brittany from [facility] has accepted patient. When I spoke with patient, he was pleased with this plan. CM to coordinate d/c tomorrow. Date Signed: 08/15/2017 01:23 PM Electronically Signed By:Ying Solo RN
[2017-08-15] MEDS ORDERED: WARFARIN SODIUM 2.5 MG TAB PO ONE (16:00)
[2017-08-15] MEDS ORDERED: WARFARIN SODIUM 1 MG TAB PO ONE (16:00)
[2017-08-15] MEDS: OXYCODONE/APAP 5/325 TAB PO PRN (21:37)
[2017-08-16 04:54] LABS: INR 2.37 (0.83-1.16); PROTIME(PATIENT) 26.1 SEC (12.0-15.0)
[2017-08-16] MEDS ORDERED: diphenhydrAMINE 50 MG CAP PO PRN (07:25)
[2017-08-16] MEDS ORDERED: diphenhydrAMINE 25 MG CAP PO PRN (07:31)
--- NOTE | 2017-08-16 07:36 | SOAPPROG ---
SOAP Progress Note Assessment/Plan: Assessment: POD#6 Redo sternotomy, complex MV repair with #34 Physio ring, TVA with #34 MC3 ring, Bill-Maze IV procedure, exposure LCFA POD#3 Biotronik dual chamber permanent pacemaker, lower rate 70 bpm. Severe MR/secondary TR, both amenable to repair - CTs removed - Antithrombotic prophylaxis with Coumadin as per Bill-Maze protocol. Adjunctive baby ASA for nonobstructive CAD (hold for INR > 3). Long standing persistent atrial flutter with more recent atrial fibrillation, s/ p Bill-Maze 4 - Postop pacer dependent JR and inconsistent Vcapture. PPM placed. Current rhythm sinus w 1st degree AVB. AF prophylaxis with BB. - Coumadin for thromboprophylaxis, INR goal 2-3, duration TBD at 3 mo as per protocol. Eventual switch back to Eliquis possible. Chronic dCHF, class II - Post op BiV systolic fx preserved - Actively diuresing moderate fluid overload with stable renal fx - HR controlled Acute blood loss anemia with thrombocytopenia and coagulopathy - Stable without the need for blood or blood product transfusions - Platelet rebound in progress. Precautionary HIT negative - LFTs ok h/o ascending aortic repair with mod AI - Stable. Surveillance per cards. Plan: Reduce lasix to 20 mg daily. Coumadin 2 mg today. Ok for transfer to SNF ([facility]). Instructions re diet, meds, activity, wound care and f/u to be reviewed. 08/16/17 07:28 Subjective: Active day yest, incl shower, and slept well. Min incisional discomfort. Improving IS (~1500). +BM. Ready to leave hospital. Objective: Vital Signs Temp Pulse Resp BP Pulse Ox 36.9 C 84 18 123/70 H 97 08/16/17 03:49 08/16/17 03:49 08/16/17 03:49 08/16/17 03:49 08/16/17 03:49 Laboratory Results 08/15/17 04:09 08/15/17 04:09 08/15/17 08/16/17 08/17/17 05:59 05:59 05:59 Intake Total 850 540 Output Total 400 300 Balance 450 240 PT 26.1 SEC (12.0-15.0) H 08/16/17 03:57 INR 2.37 (0.83-1.16) H 08/16/17 03:57 Holding SR. Robust MAPs (80s). Almost off suppl O2. Essentially at baseline wt. INR cont to fall. Physical Exam - Physical Exam General Appearance: alert, no apparent distress Respiratory: crackles (scattered at bases) Cardiac/Chest: regular rate, rhythm, other (Sternum grossly stable. Sternotomy, CT sites, left groin CDI. Left pacer pocket soft, flat) Abdomen: non-tender, soft Skin: warm/dry Extremities: other (no visible edema) ICD10 Worksheet Patient Problems: Problems Problem Status Onset Acute blood loss anemia Acute Status post ablation of atrial fibrillation Acute ~08/10/17 Status post mitral valve annuloplasty Acute ~08/10/17 Status post tricuspid valve repair Acute ~08/10/17 Aortic insufficiency Chronic Chronic anticoagulation Chronic Chronic atrial flutter Chronic Nonobstructive atherosclerosis of coronary artery Chronic Paroxysmal atrial fibrillation Chronic Secondary tricuspid regurgitation Chronic Severe mitral regurgitation Chronic
[2017-08-16] MEDS ORDERED: traMADol 50 MG TAB PO PRN (07:39)
[2017-08-16 08:18] LABS: HEMATOCRIT 26.7 % (40.0-51.0); HEMOGLOBIN 8.9 g/dL (13.7-17.5)
[2017-08-16] MEDS: PANTOPRAZOLE SODIUM 40 MG TAB PO SCH (08:37)
[2017-08-16] MEDS: ASPIRIN 81 MG CHEWABLE TAB PO SCH (08:37)
[2017-08-16] MEDS: ATORVASTATIN CALCIUM 40 MG TAB PO SCH (08:37)
[2017-08-16] MEDS ORDERED: CHOLECALCIFEROL VIT D3 1,000 UNITS TAB PO SCH (09:00)
[2017-08-16] MEDS ORDERED: SENNOSIDES/DOCUSATE SODIUM TAB PO PRN (09:00)
[2017-08-16 09:28] LABS: POTASSIUM 3.7 mEq/L (3.5-5.2)
[2017-08-16] MEDS ORDERED: POTASSIUM CL 20 MEQ TAB PO ONE (09:55)
[2017-08-16 11:25] VITALS: PULSE 82; RESP 20; O2SAT 94
[2017-08-16 12:36] VITALS: BP 110/60; TEMP 98.7
--- NOTE | 2017-08-16 12:49 | PDIAF ---
- Diagnosis Diagnosis: severe MR/TR, persistent AFl/Fib s/p MVrpr, TVA, Maze; postop JR s/p PPM Code Status: Full Code - Medication Management Discharge Medications: Medications to Continue on Transfer Aspirin [Aspirin 81mg (*)] 81 mg PO DAILY 08/02/17 [Last Taken Unknown] Atorvastatin Calcium [Lipitor 40 mg (*)] 40 mg PO DAILY 08/02/17 [Last Taken Unknown] Cholecalciferol Vit D3 [Vitamin D3 (*)] 1,000 units PO DAILY 08/02/17 [Last Taken Unknown] diphenhydrAMINE [Benadryl 50 MG (*)] 50 mg PO BID PRN 08/02/17 [Last Taken Unknown] Acetaminophen [Tylenol 325mg (*)] 325 - 650 mg PO Q4HRS PRN tab 08/16/17 [Last Taken Unknown] Lisinopril 2.5 mg PO HS PRN #30 tablet 08/16/17 [Last Taken Unknown] Metoprolol Tartrate [Lopressor 25 mg (*)] 25 mg PO BID #0 08/16/17 [Last Taken 03/22/17 07:00] Ondansetron Odt [Zofran Odt 4 mg (*)] 4 mg PO Q4HRS PRN tab 08/16/17 [Last Taken Unknown] Polyethylene Glycol 3350 [Miralax 17 gm (*)] 17 gm PO DAILY PRN pkt 08/16/17 [ Last Taken Unknown] Potassium Cl [Klor-Con 10 meq (RX)] 10 meq PO DAILY tab 08/16/17 [Last Taken Unknown] Sennosides/Docusate Sodium [Senokot-S] 1 - 2 tab PO BID PRN tab 08/16/17 [Last Taken Unknown] traMADol [Ultram 50 mg (*)] 50 - 100 mg PO Q6HRS PRN tab 08/16/17 [Last Taken Unknown] Warfarin Sodium [Coumadin 2.5MG (*)] 2.5 mg PO DAILY16 #30 tab 08/17/17 [Last Taken Unknown] Discharge Medications: Refer to the Discharge Home Medication list for PRN reason. PICC Care - Routine: N/A - Orders Services needed: Registered Nurse (cardiorespiratory monitoring, therapeutic drug monitoring), Physical Therapy (sternal precautions x 3 more weeks), Occupational Therapy (functional mobility) Oxygen: prn SpO2 < 90% Diet Recommendation: cardiac -low fat low salt, fluid restriction (use comment for amount) (2000 ml/daily) Diet Texture: Regular Texture Diet Weigh Patient: daily Wound Care Instructions: daily soap and water. avoid underwater immersion and ointments until scabs off Activity/Weight Bearing Restrictions: sternal precautions x 3 more weeks. avoid push pull activities. avoid lifting > 10 lbs Additional: Call [facility] for overnight weight gain > 2 lbs, absolute weight gain > 5 lbs, progressive leg swelling, resting HR < 60 or > 120 , SBP consistently < 90 or > 160, supplemental O2 requirement > 3 Lpm, INR > 3.5 , or any wound concerns - Labs/Radiology BMP Date: 08/21/17 (results with patient to surgery appt) CBC Date: 08/21/17 (results with patient to surgery appointment) PT/INR Date: 08/17/17 (call for INR > 2.9 otherwise give coumadin as prescribed and repeat INR on 08/21) Call or Fax Lab and Imaging Results to: Dr Teixeira's nurse Helen Jacome - Follow Up Care Current Providers and Referrals: Isak Strange MD [Primary Care Provider] - Pepe Teixeira DO [Doctor of Osteopathy] - 08/22/17 9:15 am Magnus Montez MD [Medical Doctor] - 09/15/17 1:45 pm (Follow up for device and wound check on August 18 at 2:45 pm Follow up with Dr Montez on September 15 at 1:45)
--- NOTE | 2017-08-16 13:33 | PDIAF ---
- Diagnosis Diagnosis: severe MR/TR, persistent AFl/Fib s/p MVrpr, TVA, Maze; postop JR s/p PPM Code Status: Full Code - Medication Management Discharge Medications: Medications to Continue on Transfer Aspirin [Aspirin 81mg (*)] 81 mg PO DAILY 08/02/17 [Last Taken Unknown] Atorvastatin Calcium [Lipitor 40 mg (*)] 40 mg PO DAILY 08/02/17 [Last Taken Unknown] Cholecalciferol Vit D3 [Vitamin D3 (*)] 1,000 units PO DAILY 08/02/17 [Last Taken Unknown] diphenhydrAMINE [Benadryl 50 MG (*)] 50 mg PO BID PRN 08/02/17 [Last Taken Unknown] Acetaminophen [Tylenol 325mg (*)] 325 - 650 mg PO Q4HRS PRN tab 08/16/17 [Last Taken Unknown] Furosemide [Lasix 20 MG (*)] 20 mg PO DAILY #30 tab 08/16/17 [Last Taken Unknown ] Lisinopril 2.5 mg PO HS PRN #30 tablet 08/16/17 [Last Taken Unknown] Metoprolol Tartrate [Lopressor 25 mg (*)] 25 mg PO BID #0 08/16/17 [Last Taken 03/22/17 07:00] Ondansetron Odt [Zofran Odt 4 mg (*)] 4 mg PO Q4HRS PRN tab 08/16/17 [Last Taken Unknown] Polyethylene Glycol 3350 [Miralax 17 gm (*)] 17 gm PO DAILY PRN pkt 08/16/17 [ Last Taken Unknown] Potassium Cl [Klor-Con 10 meq (RX)] 10 meq PO DAILY tab 08/16/17 [Last Taken Unknown] Sennosides/Docusate Sodium [Senokot-S] 1 - 2 tab PO BID PRN tab 08/16/17 [Last Taken Unknown] traMADol [Ultram 50 mg (*)] 50 - 100 mg PO Q6HRS PRN tab 08/16/17 [Last Taken Unknown] Warfarin Sodium [Coumadin 2.5MG (*)] 2.5 mg PO DAILY16 #30 tab 08/17/17 [Last Taken Unknown] Discharge Medications: Refer to the Discharge Home Medication list for PRN reason. PICC Care - Routine: N/A - Orders Services needed: Registered Nurse (cardiorespiratory monitoring, therapeutic drug monitoring), Physical Therapy (sternal precautions x 3 more weeks), Occupational Therapy (functional mobility) Oxygen: prn SpO2 < 90% Diet Recommendation: cardiac -low fat low salt, fluid restriction (use comment for amount) (2000 ml/daily) Diet Texture: Regular Texture Diet Weigh Patient: daily Wound Care Instructions: daily soap and water. avoid underwater immersion and ointments until scabs off Activity/Weight Bearing Restrictions: sternal precautions x 3 more weeks. avoid push pull activities. avoid lifting > 10 lbs Additional: Call invino (Puneet) for overnight weight gain > 2 lbs, absolute weight gain > 5 lbs, progressive leg swelling, resting HR < 60 or > 120 , SBP consistently < 90 or > 160, supplemental O2 requirement > 3 Lpm, INR > 3.5 , or any wound concerns - Labs/Radiology BMP Date: 08/21/17 (results with patient to surgery appt) CBC Date: 08/21/17 (results with patient to surgery appointment) PT/INR Date: 08/17/17 (call for INR > 2.9 otherwise give coumadin as prescribed and repeat INR on 08/21) Call or Fax Lab and Imaging Results to: Dr Teixeira's nurse Helen Benitaeneida - Follow Up Care Current Providers and Referrals: Isak Strange MD [Primary Care Provider] - Pepe Teixeira DO [Doctor of Osteopathy] - 08/22/17 9:15 am Magnus Montez MD [Medical Doctor] - 09/15/17 1:45 pm (Follow up for device and wound check on August 18 at 2:45 pm Follow up with Dr Montez on September 15 at 1:45)
--- NOTE | 2017-08-16 14:16 | ASMTCMCOM ---
CM Note CM Note Notes: 08/16/2017 Case Management Note Pt to d/c to [facility]. Pt met w/ Brittany from [facility] today. Sent d/c paperwork. 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 Notified RN. RN to call report. Date Signed: 08/16/2017 02:15 PM Electronically Signed By:Sharon House RN
[2017-08-16] MEDS ORDERED: WARFARIN SODIUM 2 MG TAB PO ONE (16:00)
--- NOTE | 2017-08-16 16:59 | PDDCSUM ---
Discharge Summary Discharge Summary: DATE OF ADMISSION: 08/09/17 DATE OF DISCHARGE: 08/16/17 DISPOSITION: Transferred to [facility] PRINCIPAL DISCHARGE DIAGNOSES: 1. Nonobstructive branch vessel coronary artery disease 2. Symptomatic severe mitral valve regurgitation, treated with complex mitral valve repair 3. Secondary tricuspid regurgitation, treated with tricuspid valve ring annuloplasty 4. Longstanding persistent atrial flutter with more recent atrial fibrillation, treated with Bill Maze IV procedure 5. Acute expected blood loss anemia with thrombocytopenia and mild coagulopathy 6. Postoperative junctional rhythm and pacer dependence, treated with implantation of a dual chamber permanent pacemaker FOLLOW UP APPOINTMENTS: 1. CV surgery: with Dr Teixeira at [facility] on 08/22 at 9:15 am. 2. Pacemaker clinic: at [facility] on 08/18 at 2:45 pm. 2. Cardiology: with primary commercial construction superintendent Dr Solomon at [facility] within 4-6 weeks. Appointment to be established during surgical visit. 4. Cardiology: with EP cardiology Dr Montez at [facility] on 09/15 at 1:45 pm. FOLLOW UP TESTIN. INR on 08/17. Results to [facility] if INR > 2.9 2. INR, CBC and BMP on 08/21 . Results to [facility]. 3. CXR prior to surgical appointment. ALLERGIES/SENSITIVITIES: erythromycin causing angioedema, latex causing a rash DISCHARGE MEDICATIONS: see medical administration record for full details Essentially as on admission (baby ASA, Metoprolol tartrate, Lipitor, Vit D3, Benadryl )with the following adjustments: 1. Hold Aspirin for INR > 3. 2. Hold Eliquis while on Coumadin. 3. Reduce Lisinopril to 2.5 mg nightly and only use prn SBP > 150. NEW prescriptions: 1. Lasix 20 mg daily. 2. KlorCon 10 meq daily with lasix. 3. Ultram 50-100 mg q6h prn incisional discomfort. 4. Coumadin 2.5 mg daily or as directed by INR. 5. O2 continuously at 2 Lpm or as directed by SpO2. CONSULTANTS: Interventional cardiology (Juanito), EP cardiology (Tc), Pulmonology/critical care (Minor) PROCEDURES/IMAGIN/11 (Juanito): Left and right heart catheterization with selective coronary angiography and left ventriculogram. Access via right femoral vessels. Findings : left dominant coronary circulation, angiographically normal left main, left anterior descending, left circumflex, and right coronary arteries. Mild luminal irregularities of OM1. LVEF 60%. LVEDP 16. PA 25/17, PCWP 14, CI 3.87. 08/10 (Puneet): Redo median sternotomy with exposure of the left common femoral artery. Complex mitral valve repair with triangular resection of P2 and annuloplasty with a 34mm Carrillo Physio ring. Tricuspid valve annuloplasty with a 34mm Carrillo MC3 ring. Bill-Maze IV procedure using [employer]'s Isolator Synergy Ablation System with bipolar radiofrequency, cryothermy, and internal oversew of the orifice of the left atrial appendage. 08/12 (Tc): Transthoracic echocardiogram: Nl BiV cavity size and systolic fx. Mild concentric LVH. LVEF 67%. Moderately dilated LA. Mildly dilated RA. No MR. Mild TR. Trileaflet AV with moderate AI. Nl ascending aortic size. 08/13 (Tc): Urgent implantation of a Biotronik Edora dual chamber permanent pacemaker. Pacing mode DDD. Lower rate 70 bpm. HISTORY OF PRESENT ILLNESS: 76 yo male with a hx of remote ascending aortic aneurysm repair and a recent increase in frequency of palpitations with worsening exertional dyspnea and declining stamina, found to be in atrial fibrillation and to have severe MR, moderate AI, and moderate TR. No overt CHF, CP or presyncope. Evaluated for valvular replacement with AF ablation and admitted in advance of scheduled surgery to complete risk stratification. Preop imaging negative for obstructive CAD, LVSD, elevated filling pressures or prohibitive neurologic risk. PERTINENT PAST MEDICAL HISTORY: Pectus excavatum; enlarged aortic root with mild-mod AI; mitral valve prolapse; chronic anticoagulation with Eliquis for [id number] score of 5; varicose veins with mild chronic edema; diet controlled diabetes; hypertension; hyperlipidemia ABBREVIATED HOSPITAL COURSE BY ACTIVE PROBLEM LIST: 1. Sx severe mitral regurgitation - Amenable to complex repair. 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 Antithrombotic prophylaxis as per Maze. 2. Secondary tricuspid regurgitation - Amenable to ring annuloplasty. Antithrombotic prophylaxis as per Maze. 3. Chronic dCHF, class II - Stable early postop course. No prolonged vasoactive support or significant volume overload. Actively diuresed with stable renal fx. Postop echo notable for preserved BiV systolic fx and no significant atrial dilatation. Heart failure regimen as allowed by BP. 4. Persistent atrial arrhythmias - Addressed with CoxMaze IV procedure. Early postop rhythm pacer dependent JR. PPM placed urgently for inconsistent ventricular capture of temporary wires. Post PPM rhythm predominantly sinus with 1st degree AVB. AF prophylaxis with BB resumed. Antithrombotic agent switched from Eliquis to Coumadin. Target INR 2-3. Duration TBD at 3 mo as per Maze protocol. 5. Acute blood loss anemia with thrombocytopenia and coagulopathy - Stable. No transfusions required. H/H > 8/26 maintained. LFTs normal. Precautionary HIT negative. 6. Nonobstructive CAD - Stable. No apparent postop ischemia. Secondary prevention with ASA, BB, and statin. 7. Hx ascending aortic repair with residual AI - Stable. Surveillance per cards.
--- NOTE | 2017-08-16 17:03 | ASDISCHSUM ---
Discharge Information Plan Status:SNF Medically Cleared to Leave:08/16/2017 Discharge Date:08/16/2017 04:15 PM CM D/C Disposition:[facility] Facility ADT D/C Disposition:[facility] Facility Projected Discharge Date:08/16/2017 11:00 AM Transportation at D/C:Wheelchair Van Discharge Delay Reason: Follow-Up Date:08/16/2017 11:00 AM Discharge Slot: Final Diagnosis: Placement Information Referral Type:*Long-Term/SNF Referral ID:[id number] Provider Name:[facility] Address 1:[address] Address 2: City:[place] Selection Factors: State:[place] Patient Contact Information Contact Name:JAZMYNE Relationship: Address:[address] Work Phone: [facility]:[place] Alternate Phone: [facility]/Zip Code:[place] [address] Email: Financial Information Financial Class: Primary Plan Desc:MEDICARE INPATIENT Primary Plan Number:[id number] Secondary Plan Desc: OUT OF STATE [facility] Secondary Plan Number:[id number] Assessment Information [facility] CM Progress Note CM Note CM Note Notes: Patient is POD #0 mitral valve repair and mccallum-maze procedure w Dr Teixeira. He is stable in the ICU. Patient lives with and has family nearby. PT/OT and cardiac rehab evals ordered and pending. CM will follow for discharge planning. Date Signed: 08/10/2017 01:31 PM Electronically Signed By:Ying Solo RN [facility] CM Progress Note CM Note CM Note Notes: Patient had a pacemaker placed on Monday, s/p TVR and MVR. Complaints of fatigue. Therapies recommending SNF Rehab. Patient interested in going to [facility]- close to his home. Patient transferred to . CM to follow. Date Signed: 08/14/2017 05:31 PM Electronically Signed By:Trish Hill LCSW [facility] Progress Note CM Note CM Note Notes: Per cardiology JENNA Fallon, patient will likely d/c to SNF tomorrow. Referral sent to [facility], and Brittany from [facility] has accepted patient. When I spoke with patient, he was pleased with this plan. CM to coordinate d/c tomorrow. Date Signed: 08/15/2017 01:23 PM Electronically Signed By:Ying Solo RN [facility] Progress Note CM Note CM Note Notes: 08/16/2017 Case Management Note Pt to d/c to [facility]. Pt met w/ Brittany from [facility] today. Sent d/c paperwork. 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 Notified RN. ANDRESON to call report. Date Signed: 08/16/2017 02:15 PM Electronically Signed By:Sharon Huose RN Intervention Information Intervention Type:*IM-Signed Date of Service:08/16/2017 02:27 PM Patient Type:Inpatient Staff Member:Kate De Leon Hours: Discipline: Severity: Comment:
[2017-08-17] MEDS ORDERED: POTASSIUM CL 10 MEQ TAB PO SCH (09:00)
== END 2017-08-16 16:15 | DRG 217 ==
LOC: FCATH 11:32 → F2W 13:55 → F2N 08-10 08:23 → F2W 08-14 14:15
PROVIDERS: ADMIT Thoracic Surgery (Cardiothoracic Vascular Surgery); ATTEND Thoracic Surgery (Cardiothoracic Vascular Surgery)
PROC: 4A023N8 Measurement of Cardiac Sampling and Pressure, Bilateral, Percutaneous Approach (ICD-10-PCS; 2017-08-09)
PROC: 02UG0JZ Supplement Mitral Valve with Synthetic Substitute, Open Approach (ICD-10-PCS; principal; 2017-08-10 07:15)
PROC: 02B Heart and Great Vessels, Excision (ICD-10-PCS; principal; 2017-08-10 07:15)
PROC: 02UJ0JZ Supplement Tricuspid Valve with Synthetic Substitute, Open Approach (ICD-10-PCS; principal; 2017-08-10 07:15)
PROC: 02570ZK Destruction of Left Atrial Appendage, Open Approach (ICD-10-PCS; principal; 2017-08-10 07:15)
PROC: 5A1221Z Performance of Cardiac Output, Continuous (ICD-10-PCS; principal; 2017-08-10 07:15)
PROC: 02HK3JZ Insertion of Pacemaker Lead into Right Ventricle, Percutaneous Approach (ICD-10-PCS; 2017-08-13)
PROC: 02H63JZ Insertion of Pacemaker Lead into Right Atrium, Percutaneous Approach (ICD-10-PCS; 2017-08-13)
PROC: 0JH606Z Insertion of Pacemaker, Dual Chamber into Chest Subcutaneous Tissue and Fascia, Open Approach (ICD-10-PCS; 2017-08-13)
DX: I08.3 Combined rheumatic disorders of mitral, aortic and tricuspid valves (principal); I48.1 Persistent atrial fibrillation; D62 Acute posthemorrhagic anemia; I11.0 Hypertensive heart disease with heart failure; I50.32 Chronic diastolic (congestive) heart failure; I25.10 Atherosclerotic heart disease of native coronary artery without angina pectoris; D69.6 Thrombocytopenia, unspecified; E11.9 Type 2 diabetes mellitus without complications; Z79.01 Long term (current) use of anticoagulants; E78.5 Hyperlipidemia, unspecified; Q67.6 Pectus excavatum
CPT/HCPCS: 82947-QW; 86022-90; 97116-GP; 97162-GP; 97165-GO; 97530-GO; 97530-GP; 97535-GO; C1760; C1785; C1898; G8978-GP-CK; G8979-GP-CJ; G8990-GP-CJ; G8991-GO-CI; J0153; J0282; J0690; J1265; J1644; J1815; J1885; J2001; J2250; J2260; J2370; J2405; J2704; J2720; J2765; J2930; J3010; J7060; P9041; Q9967

== ENCOUNTER → 2017-08-22 | Outpatient (CLI) | payer OTHER, BC | LOC: FIMAGING 09:05 | PROVIDERS: ATTEND Thoracic Surgery (Cardiothoracic Vascular Surgery) | DX: J90 Pleural effusion, not elsewhere classified (principal) ==

== ENCOUNTER → 2017-08-22 | Outpatient (CLI) | payer OTHER, BC ==
[~2017-08-22] MED LIST: LIDOCAINE 1% 300 MG/30 ML SDV ONE
== END ==
LOC: FIMAGING 14:15
PROVIDERS: ATTEND Thoracic Surgery (Cardiothoracic Vascular Surgery)
PROC: 0W993ZZ Drainage of Right Pleural Cavity, Percutaneous Approach (ICD-10-PCS; principal; 2017-08-22)
PROC: BB4BZZZ Ultrasonography of Pleura (ICD-10-PCS; principal; 2017-08-22)
DX: J90 Pleural effusion, not elsewhere classified (principal)

== ENCOUNTER → 2017-08-24 | Outpatient (CLI) | payer OTHER, BC | LOC: FIMAGING 09:13 | PROVIDERS: ATTEND Thoracic Surgery (Cardiothoracic Vascular Surgery) | PROC: 0W993ZZ Drainage of Right Pleural Cavity, Percutaneous Approach (ICD-10-PCS; principal; 2017-08-24) | PROC: 0W9B3ZZ Drainage of Left Pleural Cavity, Percutaneous Approach (ICD-10-PCS; principal; 2017-08-24) | DX: J90 Pleural effusion, not elsewhere classified (principal); Z98.890 Other specified postprocedural states; Z86.79 Personal history of other diseases of the circulatory system; Z95.2 Presence of prosthetic heart valve ==

== ENCOUNTER → 2017-08-25 | Outpatient (CLI) | payer OTHER, BC | LOC: FIMAGING 12:57 | PROVIDERS: ATTEND Thoracic Surgery (Cardiothoracic Vascular Surgery) | DX: I51.7 Cardiomegaly (principal); Z95.2 Presence of prosthetic heart valve ==

== ENCOUNTER → 2017-09-05 | Outpatient (CLI) | payer OTHER, BC | LOC: FIMAGING 10:15 | PROVIDERS: ATTEND Thoracic Surgery (Cardiothoracic Vascular Surgery) | DX: J90 Pleural effusion, not elsewhere classified (principal); I51.7 Cardiomegaly; Z95.2 Presence of prosthetic heart valve; Z95.0 Presence of cardiac pacemaker ==

== ENCOUNTER → 2017-09-13 | Outpatient (CLI) | payer OTHER, BC | LOC: FIMAGING 10:50 | PROVIDERS: ATTEND Thoracic Surgery (Cardiothoracic Vascular Surgery) | DX: J90 Pleural effusion, not elsewhere classified (principal) ==

== ENCOUNTER → 2017-10-02 | Outpatient (CLI) | payer OTHER, BC | LOC: BMCIMAGING 16:34 | PROVIDERS: ATTEND Internal Medicine Cardiovascular Disease | DX: M62.838 Other muscle spasm (principal); R00.2 Palpitations | CPT/HCPCS: 82607-90; 83921-90 ==

== ENCOUNTER → 2018-09-06 | Outpatient (CLI) | payer OTHER, BC | LOC: GIMAGING 17:25 | PROVIDERS: ATTEND Registered Nurse | DX: S46.311A Strain of muscle, fascia and tendon of triceps, right arm, initial encounter (principal) | CPT/HCPCS: 73080-PO ==